=== PATIENT | female | born 1980 | race Caucasian/White ===

== ENCOUNTER 2018-06-17 08:51 | Outpatient (REF) | payer MEDICAID, SELFPAY ==
[2018-06-18 06:48] LABS: Cholesterol 226 mg/dL (50-200); Glucose 94 mg/dL (70-100); HDL Cholesterol 46 mg/dL (40-60); LDL CHOLESTEROL 154 mg/dL (<100); TSH (W/Ref FT4) 1.07 uIU/mL (0.358-3.74); Triglyceride 123 mg/dL (30-150)
== END 2018-06-17 09:11 ==
LOC: NCHCN 08:51
PROVIDERS: PCP Family Medicine; Visit Provider Family Medicine
DX: J30.2 Other seasonal allergic rhinitis (principal); Z00.00 Encounter for general adult medical examination without abnormal findings; Z13.1 Encounter for screening for diabetes mellitus; Z13.220 Encounter for screening for lipoid disorders; Z13.29 Encounter for screening for other suspected endocrine disorder
CPT/HCPCS: 80061; 82947; 83721; 84443

== ENCOUNTER 2018-06-19 20:07 | Emergency (ER) | payer MEDICAID, SELFPAY ==
--- NOTE | 2018-06-19 20:07 | W.ED.GENAD ---
Discharge Plan Disposition Patient Disposition: HOME Condition: Stable Discharge Details Chief Complaint: Cellulitis Clinical Impression: Abscess of axilla, left Primary Care Provider: Shy Courtney V ED Provider: Manjit Whitehead Home Meds and New Rx's Prescriptions: New sulfamethoxazole-trimethoprim [Bactrim DS] 800-160 mg tablet 1 tab PO BID 5 Days Qty: 10 RF: 0 No Action citalopram 20 mg Tablet 30 mg PO DAILY RF: 0 clonazepam 1 mg Tablet 0.5 - 1 mg PO BID RF: 0 meclizine 12.5 mg Tablet 12.5 mg PO PRN PRNRF: 0 Discharge Instructions Instructions: Abscess (ED) Additional Instructions: you should be contacted with an appointment with the general surgery clinic for a recheck of the abscess if you have severe worsening of pain or fevers return to the emergency department Stand Alone Forms: Work Release Medical Decision Making Pt states she has had a lump in the left arm pit for about a week and last night squeezed it and what sounds like purulent material came out. HAs been sore today so came here for an eval. She denies fevers or chills or other systemic symptoms. SHe has a 1x1cm of mild erythema in the left armpit with a hole in the middle, there doesn't appear to be any more fluid or drainable collection in the area at this time. Will start her on abx and have her f/u with general surgery to make sure it doesn't require another drainage. No systemic symptoms to suggest sepsis or severe pain to suggest nec fasc so do not feel labs or imaging indicated at this time Differential Diagnosis abscess, cellulitis HPI General Mode of arrival: ambulatory. Date/Time Provider Initiated Documentation: 06/19/18 20:07. Limitations to Documentation: no limitations. Information obtained by: patient. History of Present Illness 37 year old F presents to the emergency department with the chief complaint of left arm pit abscess, described as moderate, and is localized to the left and upper extremity. Patient reports no radiation. Patient started experiencing this week(s) (1) and it has been constant. No relieving factors improve symptom(s), No exacerbating factors reported . Patient notes no other symptoms.. Related Data Home Medications Medication Instructions Recorded Confirmed citalopram 30 mg PO DAILY 06/19/18 06/19/18 clonazepam 0.5 - 1 mg PO BID 06/19/18 06/19/18 meclizine 12.5 mg PO PRN PRN 06/19/18 06/19/18 sulfamethoxazole-trimethoprim 1 tab PO BID 5 Days #10 tab 06/19/18 [Bactrim DS] Previous Rx's Medication Instructions Recorded sulfamethoxazole-trimethoprim 1 tab PO BID 5 Days #10 tab 06/19/18 [Bactrim DS] Allergies Allergy/AdvReac Type Severity Reaction Status Date / Time No Known Allergies Allergy Unverified 06/19/18 20:16 Review of Systems Review of Systems All systems reviewed & are unremarkable except as noted in HPI and below Constitutional Denies chills and Denies fever(s) Cardiovascular Denies chest pain and Denies dyspnea Respiratory Denies cough and Denies dyspnea Gastrointestinal Denies abdominal pain, Denies nausea and Denies vomiting Endocrine Denies heat intolerance PFSH Social History Smoking/Tobacco Use Status: Current every day Alcohol Intake: never Drug use: Never Substance use type: does not use Do you feel safe at home: Yes Do you feel safe in your relationship?: Yes Exam Const General: no acute distress Orientation: alert HENMT Head: normal to inspection Ears: external ears normal General nose exam: external nose normal Mouth: moist mucous membranes Eyes General: appearance normal, both eyes and all related structures Neck Neck: normal visual inspection Resp Effort & Inspection: normal respiratory effort and able to speak in complete sentences Cardio Rate: regular rate Skin General skin exam: elasticity normal Neuro General: alert and oriented x3 Extrem General: normal to inspection Psych Mental Status: mental status grossly normal
[2018-06-19 20:09] VITALS: BP 120/65; PULSE 94; RESP 14; TEMP 36.7; O2SAT 96
--- NOTE | 2018-06-19 20:26 | ED.GENADUL_ITS ---
Discharge Plan Disposition Patient Disposition: HOME Condition: Stable Discharge Details Chief Complaint: Cellulitis Clinical Impression: Abscess of axilla, left Primary Care Provider: Shy Courtney V ED Provider: Manjit Whitehead Home Meds and New Rx's Prescriptions: New sulfamethoxazole-trimethoprim [Bactrim DS] 800-160 mg tablet 1 tab PO BID 5 Days Qty: 10 RF: 0 No Action citalopram 20 mg Tablet 30 mg PO DAILY RF: 0 clonazepam 1 mg Tablet 0.5 - 1 mg PO BID RF: 0 meclizine 12.5 mg Tablet 12.5 mg PO PRN PRNRF: 0 Discharge Instructions Instructions: Abscess (ED) Additional Instructions: you should be contacted with an appointment with the general surgery clinic for a recheck of the abscess if you have severe worsening of pain or fevers return to the emergency department Stand Alone Forms: Work Release Medical Decision Making Pt states she has had a lump in the left arm pit for about a week and last night squeezed it and what sounds like purulent material came out. HAs been sore today so came here for an eval. She denies fevers or chills or other systemic symptoms. SHe has a 1x1cm of mild erythema in the left armpit with a hole in the middle, there doesn't appear to be any more fluid or drainable collection in the area at this time. Will start her on abx and have her f/u with general surgery to make sure it doesn't require another drainage. No systemic symptoms to sugges t sepsis or severe pain to suggest nec fasc so do not feel labs or imaging indicated at this time Differential Diagnosis abscess, cellulitis HPI General Mode of arrival: ambulatory . Date/Time Provider Initiated Documentation: 06/19/18 20:07 . Limitations to Documentation: no limitations . Information obtained by: patient . History of Present Illness 37 year old F presents to the emergency department with the chief complaint of left arm pit abscess, described as moderate, and is localized to the left and upper extremity. Patient reports no radiation. Patient started experiencing this week(s) (1) and it has been constant. No relieving factors improve symptom(s), No exacerbating factors reported . Patient notes no other symptoms.. Related Data Home Medications Medication Instructions Recorded Confirmed citalopram 30 mg PO DAILY 06/19/18 06/19/18 clonazepam 0.5 - 1 mg PO BID 06/19/18 06/19/18 meclizine 12.5 mg PO PRN PRN 06/19/18 06/19/18 sulfamethoxazole-trimethoprim 1 tab PO BID 5 Days #10 tab 06/19/18 [Bactrim DS] Previous Rx's Medication Instructions Recorded sulfamethoxazole-trimethoprim 1 tab PO BID 5 Days #10 tab 06/19/18 [Bactrim DS] Allergies Allergy/AdvReac Type Severity Reaction Status Date / Time No Known Allergies Allergy Unverified 06/19/18 20:16 Review of Systems Review of Systems All systems reviewed & are unremarkable except as noted in HPI and below Constitutional Denies chills and Denies fever(s) Cardiovascular Denies chest pain and Denies dyspnea Respiratory Denies cough and Denies dyspnea Gastrointestinal Denies abdominal pain, Denies nausea and Denies vomiting Endocrine Denies heat intolerance PFSH Social History Smoking/Tobacco Use Status: Current every day Alcohol Intake: never Drug use: Never Substance use type: does not use Do you feel safe at home: Yes Do you feel safe in your relationship?: Yes Exam Const General: no acute distress Orientation: alert HENMT Head: normal to inspection Ears: external ears normal General nose exam: external nose normal Mouth: moist mucous membranes Eyes General: appearance normal, both eyes and all related structures Neck Neck: normal visual inspection Resp Effort & Inspection: normal respiratory effort and able to speak in complete sentences Cardio Rate: regular rate Skin General skin exam: elasticity normal Neuro General: alert and oriented x3 Extrem General: normal to inspection Psych Mental Status: mental status grossly normal
[2018-06-19] MEDS: Sulfameth/Trimeth DS TAB 1 TAB PO (20:30)
--- NOTE | 2018-06-20 09:00 | CMPROGNOTE_ITS ---
Care Management Progress Note 06/20-Dr. Whitehead requested assistance with a general surgery f/u in one week for left armpit abscess. Referral faxed to [facility] this am.
== END 2018-06-19 20:38 | disposition home or self-care (01) ==
PROVIDERS: Emergency Provider Emergency Medicine; PCP Family Medicine
DX: L02.412 Cutaneous abscess of left axilla (principal)
CPT/HCPCS: 99283

== ENCOUNTER 2018-08-26 11:06 | Emergency (ER) | payer MEDICAID, SELFPAY ==
[2018-08-26 11:11] VITALS: BP 119/71; PULSE 89; RESP 15; TEMP 36.9; O2SAT 100
--- NOTE | 2018-08-26 11:25 | W.ED.GENAD ---
Discharge Plan Disposition Patient Disposition: HOME Condition: Fair Discharge Details Chief Complaint: Nk/Back Pain Clinical Impression: Acute torticollis Primary Care Provider: Shy Courtney V ED Provider: Ronda Almeida Home Meds and New Rx's Prescriptions: New ibuprofen 600 mg tablet 600 mg PO QID PRN (Reason: pain) Qty: 20 RF: 0 diazepam [Valium] 5 mg tablet 5 mg PO TID PRN (Reason: muscle spasm) Qty: 5 RF: 0 Continued citalopram 20 mg Tablet 30 mg PO DAILY RF: 0 clonazepam 1 mg Tablet 0.5 - 1 mg PO BID RF: 0 meclizine 12.5 mg Tablet 12.5 mg PO PRN PRNRF: 0 omega 6-wqy-hsw-fish oil [Fish Oil] 1,000 mg (120 mg-180 mg) Capsule 1 cap PO DAILY RF: 0 Probiotic 3 billion cell Capsule 1 RF: 0 Whey Protein 20 gram-140 kcal/39 gram Powder 1 pwd PO DAILY RF: 0 Discharge Instructions Instructions: Spasmodic Torticollis (ED) Additional Instructions: Encourage hydration. Frequent gentle stretching as discussed. Heat or ice to affected area. Please use Tylenol and ibuprofen to help with discomfort. Valium as prescribed to help with muscle spasm. Please take this only as prescribed, keep in a safe place. Please follow-up with primary care at the end of the week if not completely improved. If you develop change in the skin over area of pain, fever/chills, increased pain, altered sensation or the new/worsening symptoms please seek care urgently once again. Stand Alone Forms: Work Release Referrals: Shy Courtney MD [Primary Care Provider] - Medical Decision Making Patient is a 37-year-old [id number] female presents today with chief complaint of right-sided neck pain. She reports this came on insidiously this morning upon awaking. Not have any neck pain yesterday. Was not exerting herself. No recent trauma. Denies any fevers or chills. Denies any weakness or altered sensation in her extremities. On exam, patient has palpable spasm on the right side of her neck. No cervical midline tenderness, no step-off deformity palpated. She is full range of motion to the left, with extension. Pain is more with flexion and rotation to the right. Patient is referring to hold her head slightly turned away from the right side. Patient did not have any trauma, no infection, no IV drug use, feels slightly torticollis. Encourage gentle range of motion. Stretching exercises were given to the patient and demonstrated for her. Will treat with Tylenol, ibuprofen, Lidoderm patch and Valium for muscle spasm. Patient will prescribe a short course of Valium to help with spasm we discussed the risks associated with this medication. She will not drive will take medication. Her daughter is able to drive her home today. Encourage hydration. Advise close follow-up with primary care. She was given strict return precautions. All other questions and concerns were addressed and she is in agreement this plan. Referral for physical therapy was given. We did discuss expected course. HPI General Mode of arrival: ambulatory. Date/Time Provider Initiated Documentation: 08/26/18 11:25. Limitations to Documentation: no limitations. Information obtained by: patient and RN notes reviewed. History of Present Illness 37 year old F presents to the emergency department with the chief complaint of right sided neck pain and stiffness, described as severe, with intensity rated at 10. Quality is described as stabbing, and is localized to the neck. Patient reports no radiation. Patient started experiencing this hour(s) (woke with this pain) and it has been constant. Immobilization improves symptom(s), Movement worsens symptoms . Patient notes no other symptoms.. Patient did receive the following treatments prior to arrival, none Related Data Home Medications Medication Instructions Recorded Confirmed citalopram 30 mg PO DAILY 06/19/18 08/26/18 clonazepam 0.5 - 1 mg PO BID 06/19/18 08/26/18 meclizine 12.5 mg PO PRN PRN 06/19/18 08/26/18 Probiotic 1 08/26/18 Whey Protein 1 pwd PO DAILY 08/26/18 08/26/18 diazepam [Valium] 5 mg PO TID PRN #5 tab 08/26/18 ibuprofen 600 mg PO QID PRN #20 tab 08/26/18 omega 7-qkv-kfn-fish oil [Fish Oil] 1 cap PO DAILY 08/26/18 08/26/18 Previous Rx's Medication Instructions Recorded diazepam [Valium] 5 mg PO TID PRN #5 tab 08/26/18 ibuprofen 600 mg PO QID PRN #20 tab 08/26/18 Allergies Allergy/AdvReac Type Severity Reaction Status Date / Time No Known Allergies Allergy Unverified 06/19/18 20:16 General Stated Complaint: Nk/Back Pain VICKIE: 4 Review of Systems Constitutional Reports as per HPI, Denies chills, Denies fever(s), Denies headache(s) and Denies weakness ENT Denies headache(s) Cardiovascular Reports as per HPI, Denies chest pain and Denies dyspnea Respiratory Reports as per HPI, Denies cough and Denies dyspnea Genitourinary Denies urinary incontinence Musculoskeletal Reports as per HPI, Denies abnormal gait, Denies deformity, Reports limited range of motion (neck), Reports muscle cramps (muscle spasm right side of neck), Denies muscle weakness, Denies numbness, Denies radiating pain into limb and Denies tingling Integumentary/Breasts Reports as per HPI, Denies rash and Denies wounds Neurologic Reports as per HPI, Denies abnormal gait, Denies headache(s), Denies numbness, Denies tingling, Denies paresthesias and Denies weakness [facility] Social History Smoking/Tobacco Use Status: Current every day Alcohol Intake: never Drug use: Never Substance use type: does not use Do you feel safe at home: Yes Do you feel safe in your relationship?: Yes Exam Const General: cooperative, healthy appearing, comfortable, no acute distress, well developed and well groomed Nutritional Appearance: average body habitus and well nourished Orientation: alert and awake Neck Neck: limited ROM, no lymphadenopathy, no meningeal signs, trachea midline, supple, no anterior neck swelling, no lymphadenopathy noted, no midline deformity and torticollis (right sided palpable spasm, limited ROM to right and with flexion) Resp Effort & Inspection: normal respiratory effort, able to speak in complete sentences and no respiratory distress Auscultation: clear to auscultation bilaterally Cardio Rate: regular rate Rhythm: regular rhythm Heart Sounds: S1 normal Back/Spine/Pelvis Cervical Spine: No cervical ROM normal (unable to rotate to the right, full rotation to left and with extension), loss of normal cervical lordosis, cervical muscular tenderness (right side, palpable spasm), pain with cervical ROM, cervical spasm, No cervical spinal tenderness and No step off deformity Thoracic/Lumbar Spine: thoracic and lumbar spine normal to inspection Skin General skin exam: no rashes or lesions noted Lesions: no lesions Rashes: no rashes Trauma: no lacerations or abrasions Neuro General: alert and awake Cognition: normal cognition Speech: speech normal Gait: normal gait Motor: muscle tone normal throughout Sensory Exam: no sensory deficits noted Extrem General: normal to inspection, full ROM, normal capillary refill and no joint enlargement Psych Appearance: grossly normal and well kempt Mental Status: mental status grossly normal Speech and Movement: speech and movement normal Course Vital Signs Temperature 36.9 C 08/26/18 11:11 Pulse 89 08/26/18 11:11 Respiratory Rate 15 08/26/18 11:11 Blood Pressure 119/71 08/26/18 11:11 Pulse Oximetry 100 08/26/18 11:11 Temperature 36.9 C 08/26/18 11:11 Temperature Source Temporal Artery Scan 08/26/18 11:11 Pulse 89 08/26/18 11:11 Respiratory Rate 15 08/26/18 11:11 Respiratory Effort Non-Labored 08/26/18 11:14 Blood Pressure 119/71 08/26/18 11:11 Blood Pressure Position Supine 08/26/18 11:11 Pulse Oximetry 100 08/26/18 11:11 Oxygen Delivery Method Room Air 08/26/18 11:11 Oxygen Flow Rate 0 08/26/18 11:11 Pain Level 10 08/26/18 11:19
--- NOTE | 2018-08-26 11:50 | ED.GENADUL_ITS ---
Discharge Plan Disposition Patient Disposition: HOME Condition: Fair Discharge Details Chief Complaint: Nk/Back Pain Clinical Impression: Acute torticollis Primary Care Provider: Shy Courtney V ED Provider: Ronda Almeida Home Meds and New Rx's Prescriptions: New ibuprofen 600 mg tablet 600 mg PO QID PRN (Reason: pain) Qty: 20 RF: 0 diazepam [Valium] 5 mg tablet 5 mg PO TID PRN (Reason: muscle spasm) Qty: 5 RF: 0 Continued citalopram 20 mg Tablet 30 mg PO DAILY RF: 0 clonazepam 1 mg Tablet 0.5 - 1 mg PO BID RF: 0 meclizine 12.5 mg Tablet 12.5 mg PO PRN PRNRF: 0 omega 8-mzt-lsx-fish oil [Fish Oil] 1,000 mg (120 mg-180 mg) Capsule 1 cap PO DAILY RF: 0 Probiotic 3 billion cell Capsule 1 RF: 0 Whey Protein 20 gram-140 kcal/39 gram Powder 1 pwd PO DAILY RF: 0 Discharge Instructions Instructions: Spasmodic Torticollis (ED) Additional Instructions: Encourage hydration. Frequent gentle stretching as discussed. Heat or ice to affected area. Please use Tylenol and ibuprofen to help with discomfort. Valium as prescribed to help with muscle spasm. Please take this only as prescribed, keep in a safe place. Please follow-up with primary care at the end of the week if not completely improved. If you develop change in the skin over area of pain, fever/chills, increased pain, altered sensation or the new/worsening symptoms please seek care urgently once again. Stand Alone Forms: Work Release Referrals: Shy Courtney MD [Primary Care Provider] - Medical Decision Making Patient is a 37-year-old [id number] female presents today with chief complaint of right-sided neck pain. She reports this came on insidiously this morning upon awaking. Not have any neck pain yesterday. Was not exerting herself. No recent trauma. Denies any fevers or chills. Denies any weakness or altered sensation in her extremities. On exam, patient has palpable spasm on the right side of her neck. No cervical midline tenderness, no step-off deformity palpated. She is full range of motion to the left, with extension. Pain is more with flexion and rotation to the right. Patient is referring to hold her head slightly turned away from the right side. Patient did not have any trauma, no infection, no IV drug use, feels slightly torticollis. Encourage gentle range of motion. Stretching exercises were given to the patient and demonstrated for her. Will treat with Tylenol, ibuprofen, Lidoderm patch and Valium for muscle spasm. Patient will prescribe a short course of Valium to help with spasm we discussed the risks associated with this medication. She will not drive will take medication. Her daughter is able to drive her home today. Encourage hydration. Advise close follow-up with primary care. She was given strict return precautions. All other questions and concerns were ad dressed and she is in agreement this plan. Referral for physical therapy was given. We did discuss expected course. HPI General Mode of arrival: ambulatory . Date/Time Provider Initiated Documentation: 08/26/18 11:25 . Limitations to Documentation: no limitations . Information obtained by: patient and RN notes reviewed . History of Present Illness 37 year old F presents to the emergency department with the chief complaint of right sided neck pain and stiffness, described as severe, with intensity rated at 10. Quality is described as stabbing, and is localized to the neck. Patient reports no radiation. Patient started experiencing this hour(s) (woke with this pain) and it has been constant. Immobilization improves symptom(s), Movement worsens symptoms . Patient notes no other symptoms.. Patient did receive the following treatments prior to arrival, none Related Data Home Medications Medication Instructions Recorded Confirmed citalopram 30 mg PO DAILY 06/19/18 08/26/18 clonazepam 0.5 - 1 mg PO BID 06/19/18 08/26/18 meclizine 12.5 mg PO PRN PRN 06/19/18 08/26/18 Probiotic 1 08/26/18 Whey Protein 1 pwd PO DAILY 08/26/18 08/26/18 diazepam [Valium] 5 mg PO TID PRN #5 tab 08/26/18 ibuprofen 600 mg PO QID PRN #20 tab 08/26/18 omega 6-rsc-cnb-fish oil [Fish Oil] 1 cap PO DAILY 08/26/18 08/26/18 Previous Rx's Medication Instructions Recorded diazepam [Valium] 5 mg PO TID PRN #5 tab 08/26/18 ibuprofen 600 mg PO QID PRN #20 tab 08/26/18 Allergies Allergy/AdvReac Type Severity Reaction Status Date / Time No Known Allergies Allergy Unverified 06/19/18 20:16 General Stated Complaint: Nk/Back Pain VICKIE: 4 Review of Systems Constitutional Reports as per HPI, Denies chills, Denies fever(s), Denies headache(s) and Denies weakness ENT Denies headache(s) Cardiovascular Reports as per HPI, Denies chest pain and Denies dyspnea Respiratory Reports as per HPI, Denies cough and Denies dyspnea Genitourinary Denies urinary incontinence Musculoskeletal Reports as per HPI, Denies abnormal gait, Denies deformity, Reports limited range of motion (neck), Reports muscle cramps (muscle spasm right side of neck), Denies muscle weakness, Denies numbness, Denies radiating pain into limb and Denies tingling Integumentary/Breasts Reports as per HPI, Denies rash and Denies wounds Neurologic Reports as per HPI, Denies abnormal gait, Denies headache(s), Denies numbness, Denies tingling, Denies paresthesias and Denies weakness [facility] Social History Smoking/Tobacco Use Status: Current every day Alcohol Intake: never Drug use: Never Substance use type: does not use Do you feel safe at home: Yes Do you feel safe in your relationship?: Yes Exam Const General: cooperative, healthy appearing, comfortable, no acute distress, well developed and well groomed Nutritional Appearance: average body habitus and well nourished Orientation: alert and awake Neck Neck: limited ROM, no lymphadenopathy, no meningeal signs, trachea midline, supple, no anterior neck swelling, no lymphadenopathy noted, no midline deformity and torticollis (right sided palpable spasm, limited ROM to right and with flexion) Resp Effort & Inspection: normal respiratory effort, able to speak in complete sent ences and no respiratory distress Auscultation: clear to auscultation bilaterally Cardio Rate: regular rate Rhythm: regular rhythm Heart Sounds: S1 normal Back/Spine/Pelvis Cervical Spine: No cervical ROM normal (unable to rotate to the right, full rotation to left and with extension), loss of normal cervical lordosis, cervical muscular tenderness (right side, palpable spasm), pain with cervical ROM, ce rvical spasm, No cervical spinal tenderness and No step off deformity Thoracic/Lumbar Spine: thoracic and lumbar spine normal to inspection Skin General skin exam: no rashes or lesions noted Lesions: no lesions Rashes: no rashes Trauma: no lacerations or abrasions Neuro General: alert and awake Cognition: normal cognition Speech: speech normal Gait: normal gait Motor: muscle tone normal throughout Sensory Exam: no sensory deficits noted Extrem General: normal to inspection, full ROM, normal capillary refill and no joint enlargement Psych Appearance: grossly normal and well kempt Mental Status: mental status grossly normal Speech and Movement: speech and movement normal Course Vital Signs Temperature 36.9 C 08/26/18 11:11 Pulse 89 08/26/18 11:11 Respiratory Rate 15 08/26/18 11:11 Blood Pressure 119/71 08/26/18 11:11 Pulse Oximetry 100 08/26/18 11:11 Temperature 36.9 C 08/26/18 11:11 Temperature Source Temporal Artery Scan 08/26/18 11:11 Pulse 89 08/26/18 11:11 Respiratory Rate 15 08/26/18 11:11 Respiratory Effort Non-Labored 08/26/18 11:14 Blood Pressure 119/71 08/26/18 11:11 Blood Pressure Position Supine 08/26/18 11:11 Pulse Oximetry 100 08/26/18 11:11 Oxygen Delivery Method Room Air 08/26/18 11:11 Oxygen Flow Rate 0 08/26/18 11:11 Pain Level 10 08/26/18 11:19
[2018-08-26] MEDS: diazePAM 5 MG TAB PO (11:57)
[2018-08-26] MEDS: Acetaminophen 325 MG TAB 650 MG PO (11:58)
[2018-08-26] MEDS: Ibuprofen 600 MG TAB PO (11:58)
[2018-08-26 11:59] VITALS: BP 104/71; PULSE 78; RESP 16
[2018-08-26] MEDS: Lidocaine 5% Patch 1 PATCH TP (12:07)
== END 2018-08-26 12:10 | disposition home or self-care (01) ==
PROVIDERS: Emergency Provider Physician Assistant; PCP Family Medicine
DX: M43.6 Torticollis (principal)
CPT/HCPCS: 99283

== ENCOUNTER 2019-03-30 13:51 | Emergency (ER) | payer MEDICAID, SELFPAY ==
[2019-03-30 13:55] VITALS: BP 117/70; PULSE 99; RESP 16; TEMP 36.2; O2SAT 99
--- NOTE | 2019-03-30 14:43 | ED.GENADUL_ITS ---
Discharge Plan Disposition Patient Disposition: HOME Condition: Improving Discharge Details Chief Complaint: Cellulitis Clinical Impression: Abscess of Bartholin's gland Primary Care Provider: Shy Courtney V ED Provider: Travis Trotter Home Meds and New Rx's Prescriptions: Continued citalopram 20 mg Tablet 30 mg PO DAILY RF: 0 clonazepam 1 mg Tablet 0.5 - 1 mg PO BID RF: 0 meclizine 12.5 mg Tablet 12.5 mg PO PRN PRNRF: 0 omega 6-ksf-xpq-fish oil [Fish Oil] 1,000 mg (120 mg-180 mg) Capsule 1 cap PO DAILY RF: 0 ibuprofen 600 mg tablet 600 mg PO QID PRN (Reason: pain) Qty: 20 RF: 0 Discharge Instructions Instructions: Bartholin Cyst (ED), Incision and Drainage (ED) Additional Instructions: 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 I discussed your case with Dr. Swann, who asked that she come to clinic tomorrow morning at 9 AM. Please tell the clinic staff that he instructed you to present at 9 AM and that he and I have discussed your case. Phone #[phone] May use Tylenol and/or ibuprofen if needed for discomfort. Return to the emerge department for any acute concerns in the interim. Stand Alone Forms: Work Release Medical Decision Making Healthy 38-year-old female presents with 4 days of right labial swelling. Consistent with Bartholin glands abscess on exam. She is not systemically ill and her history and exam are otherwise unremarkable. Consented for incision, drainage, placement of Word catheter. Patient was anesthetized, prepped and draped in standard sterile fashion incised on just the medial border of the inferior labia with production of approximately 2 cc of purulent fluid. A Word balloon tipped catheter did not seat adequately and the patient was subsequently packed with iodoform gauze. I discussed the case with Dr. Swann who will see the patient in follow-up tomorrow in the office. She is instructed on home care in the interim. HPI General Mode of arrival: ambulatory . Date/Time Provider Initiated Documentation: 03/30/19 13:56 . Limitations to Documentation: no limitations . Information obtained by: patient . History of Present Illness 38 year old F presents to the emergency department with the chief complaint of Right labial swelling and pain, described as mild, Quality is described as dull and constant, and is localized to the genitals and right. Patient reports no radiation. Patient started experiencing this day(s) and it has been constant. No relieving factors improve symptom(s), No exacerbating factors reported . Patient notes no other symptoms.. Patient did receive the following treatments prior to arrival, none Related Data Home Medications Medication Instructions Recorded Confirmed citalopram 30 mg PO DAILY 06/19/18 03/30/19 clonazepam 0.5 - 1 mg PO BID 06/19/18 03/30/19 meclizine 12.5 mg PO PRN PRN 06/19/18 03/30/19 ibuprofen 600 mg PO QID PRN #20 tab 08/26/18 03/30/19 omega 3-vax-ern-fish oil [Fish Oil] 1 cap PO DAILY 08/26/18 03/30/19 Previous Rx's Medication Instructions Recorded ibuprofen 600 mg PO QID PRN #20 tab 08/26/18 Allergies Allergy/AdvReac Type Severity Reaction Status Date / Time No Known Allergies Allergy Unverified 03/30/19 13:57 General Stated Complaint: Cellulitis VICKIE: 4 Review of Systems Narrative: 6 systems reviewed and otherwise negative [facility] Social History Smoking/Tobacco Use Status: Current every day Tobacco Type: cigarettes Alcohol Intake: current Alcohol Intake frequency: holidays/special occasions only Drug use: Never Substance use type: does not use Do you feel safe at home: Yes Do you feel safe in your relationship?: Yes Exam Narrative Exam Narrative: GEN: awake, alert, oriented 3. Pleasant, well groomed, interactive. HEAD: Normocephalic, atraumatic ENT: Mucous membranes moist, oropharynx unremarkable, External ear exam unremarkable EYES: PERRL, EOMI NECK: Full ROM, no HILDA, no menigismus CHEST/RESP: Nontender, clear to auscultation bilateral, no wheeze/rhonchi/rales CARDIOVASCULAR: RRR, no murmur, rub jhony. 2+ Rad pulse bilateral ABDOMEN: Soft, nontender, no mass. +Bowel sounds. Pelvis exam: R labia inferior swelling, tenderness EXT: Full ROM, no edema, no rash Neuro: Grossly normal neurologic exam, conversant, interactive. Psych: Speech fluent, thoughts congruent, affect normal Course Vital Signs Vital signs: Vital Signs Temperature 36.2 C L 03/30/19 13:55 Pulse 99 H 03/30/19 13:55 Respiratory Rate 16 03/30/19 13:55 Blood Pressure 117/70 03/30/19 13:55 Pulse Oximetry 99 03/30/19 13:55 Temperature 36.2 C L 03/30/19 13:55 Temperature Source Skin 03/30/19 13:55 Pulse 99 H 03/30/19 13:55 Respiratory Rate 16 03/30/19 13:55 Respiratory Effort Non-Labored 03/30/19 13:58 Blood Pressure 117/70 03/30/19 13:55 Blood Pressure Position Sitting 03/30/19 13:55 Pulse Oximetry 99 03/30/19 13:55 Oxygen Delivery Method Room Air 03/30/19 13:55 Oxygen Flow Rate 0 03/30/19 13:55 Pain Level 5 03/30/19 13:55 Procedures Abscess I/D Site: Bartholin's Gland Side (if applicable): Right Local Anesthetic: Lidocaine 1% Amount of anesthesia used (mL): 2 Technique: Incised with #11 Blade Packing used?: Iodoform
[2019-03-30 16:10] VITALS: BP 124/74; PULSE 81; RESP 18; TEMP 36.8; O2SAT 98
== END 2019-03-30 16:13 | disposition home or self-care (01) ==
PROVIDERS: Emergency Provider Emergency Medicine; PCP Family Medicine
DX: N75.1 Abscess of Bartholin's gland (principal)
CPT/HCPCS: 56420; 99283

== ENCOUNTER 2019-04-21 06:28 | Outpatient (CLI) | payer MEDICAID, SELFPAY ==
--- NOTE | 2019-04-21 10:14 | DI.RAD_ITS ---
EXAM: XR THORACIC SPINE COMPLETE CLINICAL HISTORY: THORACIC BACK PAIN M54.9. TECHNIQUE: 2D digital imaging was performed. COMPARISON: No exams were available for comparison FINDINGS: BONES: There is no fracture or destructive lesion. The vertebral bodies and posterior elements are un remarkable. DISKS:Alignment is within normal limits. Interverebral disc spaces are maintained. SOFT TISSUE: Visualized lungs are clear. IMPRESSION: Unremarkable radiographs of the thoracic spine.
--- NOTE | 2019-04-21 10:18 | DI.RAD_ITS ---
EXAM: XR LUMBAR SPINE COMPLETE INDICATION: LOW BACK PAIN M54.5. COMPARISON: No exams were available for comparison TECHNIQUE: 2D digital imaging was performed. FINDINGS: There are 5 lumbar-type vertebral bodies. No spondylolysis or spondylolisthesis is present. There a re no acute fractures or subluxations. There are degenerative changes of the facets at L4-5 and L5-S 1. The disc spaces are well maintained. The bones are normally mineralized. The soft tissues are u nremarkable. IMPRESSION: Mild degenerative changes in the lower lumbar spine.
== END 2019-04-21 06:48 ==
PROVIDERS: PCP Family Medicine; Visit Provider Family Medicine
DX: M54.6 Pain in thoracic spine (principal); M54.5 Low back pain; M47.817 Spondylosis without myelopathy or radiculopathy, lumbosacral region
CPT/HCPCS: 72072; 72110

== ENCOUNTER 2019-04-26 10:27 | Emergency (ER) | payer MEDICAID, SELFPAY ==
[2019-04-26 10:32] VITALS: BP 132/79; PULSE 112; RESP 16; TEMP 36.2; O2SAT 97
--- NOTE | 2019-04-26 11:17 | W.ED.GENAD ---
Discharge Plan Disposition Patient Disposition: HOME Condition: Stable Discharge Details Chief Complaint: DentalOral Clinical Impression: Dental infection Primary Care Provider: Shy Courtney V ED Provider: Randi Anderson Home Meds and New Rx's Prescriptions: New penicillin V potassium 500 mg tablet 500 mg PO QID 7 Days Qty: 28 RF: 0 Continued cholecalciferol (vitamin D3) 4,000 unit capsule 4,000 unit PO DAILY RF: 0 sulfamethoxazole-trimethoprim [Bactrim DS] 800-160 mg tablet 1 tab PO BID Qty: 14 RF: 0 citalopram 20 mg Tablet 30 mg PO DAILY RF: 0 clonazepam 1 mg Tablet 0.5 - 1 mg PO BID RF: 0 meclizine 12.5 mg Tablet 12.5 mg PO PRN PRNRF: 0 omega 7-ymz-rxx-fish oil [Fish Oil] 1,000 mg (120 mg-180 mg) Capsule 1 cap PO DAILY RF: 0 ibuprofen 600 mg tablet 600 mg PO QID PRN (Reason: pain) Qty: 20 RF: 0 mirtazapine 15 mg Tablet 15 mg PO .QHS RF: 0 Discharge Instructions Instructions: Dental Caries (ED) Additional Instructions: Drink plenty of fluids and get plenty of rest. Alternate tylenol and motrin as needed and directed for pain. Take the antibiotics until finished. Call [facility] tomorrow morning to schedule a follow-up appointment for reevaluation. Return to the emergency department if you develop any worsening or new concerning symptoms. Discharge Data Discharge Date/Time-TO BE ENTERED AT DEPARTURE: 04/26/19 11:51 Discharge Physician: Randi Anderson Medical Decision Making 38-year-old female presents with left upper dental pain for the past 2 days. Poor dentition throughout. Multiple dental caries and missing and broken teeth. Area of pain left upper jaw. There is surrounding mild edema and erythema but no abscess noted. No trismus, drooling or submandibular swelling. Patient states she plans to follow-up with [facility]. She was given a prescription for penicillin. She is advised to call [facility] tomorrow for follow-up and to return here with any concerns. Medical Records Medical records reviewed: Yes I reviewed the patient's medical records. HPI General Mode of arrival: ambulatory. Date/Time Provider Initiated Documentation: 02/09/20 10:34. Limitations to Documentation: no limitations. Information obtained by: patient. History of Present Illness 38 year old F presents to the emergency department with the chief complaint of Left upper dental pain, and is localized to the face and mouth. Patient started experiencing this day(s) (2) and it has been constant. No relieving factors improve symptom(s), Movement worsens symptoms . Patient notes no other symptoms.. Patient did receive the following treatments prior to arrival, none Related Data Home Medications Medication Instructions Recorded Confirmed citalopram 30 mg PO DAILY 06/19/18 04/26/19 clonazepam 0.5 - 1 mg PO BID 06/19/18 04/26/19 meclizine 12.5 mg PO PRN PRN 06/19/18 04/26/19 ibuprofen 600 mg PO QID PRN #20 tab 08/26/18 04/26/19 omega 5-ukc-nsd-fish oil [Fish Oil] 1 cap PO DAILY 08/26/18 04/26/19 cholecalciferol (vitamin D3) 4,000 4,000 unit PO DAILY 03/31/19 04/26/19 unit capsule sulfamethoxazole 800 1 tab PO BID #14 tab 03/31/19 04/26/19 mg-trimethoprim 160 mg tablet mirtazapine 15 mg PO .QHS 04/26/19 04/26/19 penicillin V potassium 500 mg PO QID 7 Days #28 tab 04/26/19 Previous Rx's Medication Instructions Recorded ibuprofen 600 mg PO QID PRN #20 tab 08/26/18 sulfamethoxazole 800 1 tab PO BID #14 tab 03/31/19 mg-trimethoprim 160 mg tablet penicillin V potassium 500 mg PO QID 7 Days #28 tab 04/26/19 Allergies Allergy/AdvReac Type Severity Reaction Status Date / Time No Known Allergies Allergy Unverified 04/26/19 10:35 General Stated Complaint: DentalOral VICKIE: 4 Review of Systems All systems reviewed & are unremarkable except as noted in HPI and below Constitutional Constitutional: Reports as per HPI, Denies chills and Denies fever(s) Eyes Eyes: Denies blurry vision ENT Ears, Nose, Mouth, and Throat: Denies dizziness, Denies sore throat and Denies throat swelling Cardiovascular Cardiovascular: Denies chest pain and Denies dyspnea Respiratory Respiratory: Denies cough and Denies dyspnea Gastrointestinal Gastrointestinal: Denies abdominal pain, Denies diarrhea and Denies vomiting Genitourinary Genitourinary: Denies hematuria and Denies dysuria Musculoskeletal Musculoskeletal: Denies back pain and Denies numbness Integumentary/Breasts Skin/Breast: Denies lesions and Denies rash Neurologic Neurologic: Denies dizziness, Denies focal weakness and Denies numbness Allergic/Immunologic Allergic/Immunologic: Denies throat swelling [facility] Social History Smoking/Tobacco Use Status: Current every day Tobacco Type: cigarettes Smoking packs per day: 0.5 Smoking cigarettes per day: 10.0 Alcohol Intake: current Alcohol Intake frequency: holidays/special occasions only Drug use: Never Substance use type: does not use Do you feel safe at home: Yes Do you feel safe in your relationship?: Yes Exam Const General: cooperative, healthy appearing and no acute distress HENMT Head: normal to inspection Ears: hearing grossly normal bilaterally, external ears normal and TM's normal bilaterally General nose exam: external nose normal Mouth: oral mucosae normal Teeth image: 1. Tenderness to palpation. Poor dentition throughout. Multiple missing teeth. Braces of teeth remaining with dental caries. There is mild to moderate edema and erythema around base of tooth. There is no abscess noted. Throat: posterior oropharynx normal Eyes General: appearance normal, both eyes and all related structures Neck Neck: normal visual inspection, trachea midline, supple, no anterior neck swelling and No submandibular swelling Resp Effort & Inspection: normal respiratory effort and able to speak in complete sentences Auscultation: clear to auscultation bilaterally Cardio Rate: regular rate Skin General skin exam: no rashes or lesions noted Neuro General: alert, awake and oriented x3 Motor: muscle tone normal throughout Extrem General: normal to inspection and full ROM Psych Appearance: grossly normal Affect: normal affect Course Vital Signs Vital signs: Vital Signs Temperature 97.2 F L 04/26/19 10:32 Pulse 112 H 04/26/19 10:32 Respiratory Rate 16 04/26/19 10:32 Blood Pressure 132/79 04/26/19 10:32 Pulse Oximetry 97 04/26/19 10:32 Temperature 97.2 F L 04/26/19 10:32 Temperature Source Skin 04/26/19 10:32 Pulse 112 H 04/26/19 10:32 Respiratory Rate 16 04/26/19 10:32 Respiratory Effort Non-Labored 04/26/19 10:32 Blood Pressure 132/79 04/26/19 10:32 Blood Pressure Position Sitting 04/26/19 10:32 Pulse Oximetry 97 04/26/19 10:32 Oxygen Delivery Method Room Air 04/26/19 10:32 Oxygen Flow Rate 0 04/26/19 10:32 Pain Level 8 04/26/19 10:55
[2019-04-26 11:44] VITALS: BP 111/51; PULSE 87; RESP 16; TEMP 36.8; O2SAT 98
== END 2019-04-26 11:51 | disposition home or self-care (01) ==
PROVIDERS: Emergency Provider Physician Assistant; PCP Family Medicine
DX: R68.84 Jaw pain (principal); K04.7 Periapical abscess without sinus
CPT/HCPCS: 99283

== ENCOUNTER 2020-04-16 09:34 | Emergency (ER) | payer MEDICAID, SELFPAY ==
[2020-04-16 09:38] VITALS: BP 133/80; PULSE 107; RESP 20; TEMP 36.2; O2SAT 96
--- NOTE | 2020-04-16 09:49 | ED.GENADUL_ITS ---
Discharge Plan Disposition Patient Disposition: HOME Condition: Improving Discharge Details Clinical Impression: Dental infection Primary Care Provider: Shy Courtney V ED Provider: Travis Trotter Home Meds and New Rx's Prescriptions: New amoxicillin-pot clavulanate 875-125 mg tablet 1 tab PO BID 10 Days Qty: 20 RF: 0 Continued cholecalciferol (vitamin D3) 4,000 unit capsule 4,000 unit PO DAILY RF: 0 citalopram 20 mg Tablet 30 mg PO DAILY RF: 0 clonazepam 1 mg Tablet 0.5 - 1 mg PO BID RF: 0 meclizine 12.5 mg Tablet 12.5 mg PO PRN PRNRF: 0 omega 4-clm-wdz-fish oil [Fish Oil] 1,000 mg (120 mg-180 mg) Capsule 1 cap PO DAILY RF: 0 ibuprofen 600 mg tablet 600 mg PO QID PRN (Reason: pain) Qty: 20 RF: 0 Discontinued clindamycin HCl 300 mg capsule 300 mg PO QID RF: 0 Discharge Instructions Instructions: Dental Abscess (ED) Additional Instructions: Stop clindamycin. Begin Augmentin as prescribed. Take for its entire course. I recommend you begin an ssbb-ysv-zimnxpq probiotic once daily in the middle of the day. Return for fever, increased swelling, drooling or change to voice, or any other acute concerns. Please follow-up with dentistry as you have planned. Warm compress to area. Salt water gargles. May continue Tylenol and/or ibuprof en as needed for pain. Medical Decision Making 39-year-old female with previous dental infection reports 4 to 5 days of left lower jaw discomfort, swelling, bilateral ear congestion. She was placed on clindamycin 4 days ago. Ongoing symptoms today. She has follow-up planned with dentistry. She is well-appearing and afebrile. She has left mandibular buccal swelling with no pointing abscess. We will have her start on Augmentin. Begin a probiotic. She is to stop the clindamycin. She will follow-up with dentistry as planned. Appropriate for home management at this time. HPI General Mode of arrival: ambulatory . Date/Time Provider Initiated Documentation: 04/16/20 09:35 . Limitations to Documentation: no limitations . Information obtained by: patient . History of Present Illness 39 year old F presents to the emergency department with the chief complaint of Left lower jaw pain, described as moderate and similar to prior episodes, Quality is described as dull and constant, and is localized to the face, mouth and left. Patient reports no radiation. Patient started experiencing this day(s) and it has been constant. No relieving factors improve symptom(s), No exacerbating factors reported . Patient notes denies fever/chills and nausea/vomiting. Patient did receive the following treatments prior to arrival, NSAID and other (Clindamycin) Related Data Home Medications Medication Instructions Recorded Confirmed citalopram 30 mg PO DAILY 06/19/18 04/16/20 clonazepam 0.5 - 1 mg PO BID 06/19/18 04/16/20 meclizine 12.5 mg PO PRN PRN 06/19/18 04/16/20 ibuprofen 600 mg PO QID PRN #20 tab 08/26/18 04/16/20 omega 8-gxp-zaf-fish oil [Fish Oil] 1 cap PO DAILY 08/26/18 04/16/20 cholecalciferol (vitamin D3) 100 4,000 unit PO DAILY 03/31/19 04/16/20 mcg (4,000 unit) capsule amoxicillin-pot clavulanate 1 tab PO BID 10 Days #20 tab 04/16/20 Previous Rx's Medication Instructions Recorded ibuprofen 600 mg PO QID PRN #20 tab 08/26/18 amoxicillin-pot clavulanate 1 tab PO BID 10 Days #20 tab 04/16/20 Allergies Allergy/AdvReac Type Severity Reaction Status Date / Time No Known Allergies Allergy Unverified 04/16/20 09:42 General Stated Complaint: DentalOral VICKIE: 4 Review of Systems Narrative: No fever, no stiff neck, no vomiting, no drooling, no change to voice or swallowing. 6 systems reviewed and otherwise negative [facility] Social History Smoking/Tobacco Use Status: Current every day Tobacco Type: cigarettes Smoking packs per day: 0.5 Smoking cigarettes per day: 10.0 Smoking risk assessment performed?: Yes Alcohol Intake: current Alcohol Intake frequency: holidays/special occasions only Drug use: Never Substance use type: does not use Do you feel safe at home: Yes Do you feel safe in your relationship?: Yes Exam Narrative Exam Narrative: GEN: awake, alert, oriented 3. Pleasant, well groomed, inter active. HEAD: Normocephalic, atraumatic ENT: Mucous membranes moist, oropharynx with numerous dental caries, missing teeth, partial dental fractures. Tender left lower with mild buccal swelling present along the lateral aspect. No pointing or focal abscess. Tympanic membrane is congested but pearlescent bilaterally external ear exam unremarkable EYES: PERRL, EOMI NECK: Full ROM, no HILDA, no menigismus CHEST/RESP: No respiratory distress EXT: Full ROM, no edema, no rash Neuro: Grossly normal neurologic exam, conversant, interactive. Psych: Speech fluent, thoughts congruent, affect normal Course Vital Signs Vital signs: Vital Signs Temperature 36.2 C L 04/16/20 09:38 Pulse 107 H 04/16/20 09:38 Respiratory Rate 20 04/16/20 09:38 Blood Pressure 133/80 04/16/20 09:38 Pulse Oximetry 96 04/16/20 09:38 Temperature 36.2 C L 04/16/20 09:38 Temperature Source Skin 04/16/20 09:38 Pulse 107 H 04/16/20 09:38 Respiratory Rate 20 04/16/20 09:38 Respiratory Effort Non-Labored 04/16/20 09:44 Blood Pressure 133/80 04/16/20 09:38 Blood Pressure Position Sitting 04/16/20 09:38 Pulse Oximetry 96 04/16/20 09:38 Oxygen Delivery Method Room Air 04/16/20 09:38 Oxygen Flow Rate 0 04/16/20 09:38 Pain Level 5 04/16/20 09:38
[2020-04-16] MEDS: Amoxicillin 875/Clav. 125 TAB PO (09:59)
== END 2020-04-16 10:02 | disposition home or self-care (01) ==
PROVIDERS: Emergency Provider Emergency Medicine; PCP Family Medicine
DX: R68.84 Jaw pain (principal); K04.7 Periapical abscess without sinus; R22.0 Localized swelling, mass and lump, head
CPT/HCPCS: 99283

== ENCOUNTER 2020-05-20 07:00 | Emergency (ER) | payer MEDICAID, SELFPAY ==
[2020-05-20 07:07] VITALS: BP 128/74; PULSE 104; RESP 18; TEMP 35.9; O2SAT 97
--- NOTE | 2020-05-20 07:13 | W.ED.GENAD ---
Discharge Plan Disposition Patient Disposition: HOME Condition: Good Discharge Details Clinical Impression: Acute streptococcal pharyngitis Primary Care Provider: Shy Courtney V ED Provider: Jarred [place] Meds and New Rx's Prescriptions: New penicillin V potassium 500 mg tablet 500 mg PO BID Qty: 19 RF: 0 Continued cholecalciferol (vitamin D3) 4,000 unit capsule 4,000 unit PO DAILY RF: 0 citalopram 20 mg Tablet 30 mg PO DAILY RF: 0 clonazepam 1 mg Tablet 0.5 - 1 mg PO DAILY RF: 0 meclizine 12.5 mg Tablet 12.5 mg PO PRN PRNRF: 0 omega 7-bqw-rad-fish oil [Fish Oil] 1,000 mg (120 mg-180 mg) Capsule 1 cap PO DAILY RF: 0 loratadine 10 mg tablet 10 mg PO DAILY RF: 0 ibuprofen 600 mg tablet 800 mg PO QID PRN (Reason: pain) RF: 0 Discharge Instructions Instructions: Strep Throat (ED), COVID-19: Slow the Coronavirus Spread (ED) Additional Instructions: You have exposure, lack of immunization and symptoms which could be early Covid. You have been tested and need to stay home in quarantine until those results are back negative and you are feeling better. You are strep positive. We will treat with penicillin. This does not mean you cannot have COVID as well. Rest, hydrate, use Tylenol or Motrin as needed. Return to ED for mental status changes, shortness of breath, chest pain, [id number] to swallow, other concerns. Stand Alone Forms: PENDING COVID-19 TESTING, Work Release Referrals: Shy Courtney MD [Primary Care Provider] - Medical Decision Making Patient presenting with complaints of headache, sore throat, chills, slight cough. 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 She is not immunized. She does not look ill but she certainly could have contracted Covid. She is afebrile here. Saturations are normal. Exam is unremarkable. We will plan rapid strep and send out Covid with instructions to quarantine at home until negative testing and feeling better. Recommend rest, hydration, acetaminophen or ibuprofen for discomfort. Return to ED for altered mental status, chest pain, shortness of breath, other concerns. HPI General Mode of arrival: ambulatory. Date/Time Provider Initiated Documentation: 05/20/20 07:12. Limitations to Documentation: no limitations. Information obtained by: patient and RN notes reviewed. HPI Narrative: Patient presents to ED with complaint of headache, sore throat, chills since yesterday. She has a slight cough. She has no fever, shortness of breath, chest pain, GI symptoms, loss of taste or smell. 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 She reports that there have been 2 recent positive Covid cases. She has not yet been immunized. She is supposed to work today. Related Data Home Medications Medication Instructions Recorded Confirmed citalopram 30 mg PO DAILY 06/19/18 05/20/20 clonazepam 0.5 - 1 mg PO DAILY 06/19/18 05/20/20 meclizine 12.5 mg PO PRN PRN 06/19/18 05/20/20 omega 5-kph-rnt-fish oil [Fish Oil] 1 cap PO DAILY 08/26/18 05/20/20 cholecalciferol (vitamin D3) 100 4,000 unit PO DAILY 03/31/19 05/20/20 mcg (4,000 unit) capsule ibuprofen 800 mg PO QID PRN 05/20/20 05/20/20 loratadine 10 mg PO DAILY 05/20/20 05/20/20 penicillin V potassium 500 mg PO BID #19 tab 05/20/20 Previous Rx's Medication Instructions Recorded penicillin V potassium 500 mg PO BID #19 tab 05/20/20 Allergies Allergy/AdvReac Type Severity Reaction Status Date / Time No Known Allergies Allergy Unverified 04/16/20 09:42 General Stated Complaint: Sorethroat VICKIE: 3 Review of Systems Narrative: As documented in HPI otherwise negative as below. Const: no fever, weakness Resp: no SOB, pleuritic pain CV: no CP, diaphoresis, edema, syncope GI: no abdominal pain, nausea, vomiting, diarrhea Neuro: no numbness, focal weakness, confusion [facility] Medical History No significant past medical history Surgical History S/P tubal ligation Social History Smoking/Tobacco Use Status: Former Tobacco Use Smoking risk assessment performed?: Yes Alcohol Intake: current Alcohol Intake frequency: holidays/special occasions only Drug use: Never Substance use type: does not use Do you feel safe at home: Yes Do you feel safe in your relationship?: Yes Exam Narrative Exam Narrative: Const: WDWN female in NAD. HEENT: NC/AT. Normal facial exam. Normal TMs. Normal oropharynx. Eyes: Normal conjunctiva and sclera. Neck: Supple. Trachea midline. Lungs: Normal respiratory effort. Lungs are clear. Cor: RRR without murmur/gallop. Good radial pulses. Neuro: A+O x 3. Normal speech, mentation, gait. Cranial nerves II - XII grossly intact. No gross motor or sensory deficit. Skin: Warm and dry without rash. Course Vital Signs Vital signs: Vital Signs Temperature 96.6 F L 05/20/20 07:07 Pulse 104 H 05/20/20 07:07 Respiratory Rate 18 05/20/20 07:07 Blood Pressure 128/74 05/20/20 07:07 Pulse Oximetry 97 05/20/20 07:07 Temperature 96.6 F L 05/20/20 07:07 Temperature Source Temporal Artery Scan 05/20/20 07:07 Pulse 104 H 05/20/20 07:07 Respiratory Rate 18 05/20/20 07:07 Blood Pressure 128/74 05/20/20 07:07 Blood Pressure Position Sitting 05/20/20 07:07 Pulse Oximetry 97 05/20/20 07:07 Oxygen Delivery Method Room Air 05/20/20 07:07 Oxygen Flow Rate 0 05/20/20 07:07 Pain Level 3 05/20/20 07:07
[2020-05-20] MEDS: Penicillin V POTASSIUM 500 MG TAB PO (07:56)
[2020-05-21 14:06] LABS: COVID-19 RT-PCR UVMMC Result Negative (Negative)
--- NOTE | 2020-05-23 10:07 | NUR.NOTE ---
Nursing Note: Attempted to call patient on cell phone # on file to notify of negative covid results. Receive message that this cell phone number has phone restrictions in place that prevents calls from our number. Next of kin on file with same phone # as patient. Negative covid results mailed to patient to address on file.
== END 2020-05-20 08:03 | disposition home or self-care (01) ==
PROVIDERS: Emergency Provider Emergency Medicine; PCP Family Medicine
DX: J02.0 Streptococcal pharyngitis (principal); Z03.818 Encounter for observation for suspected exposure to other biological agents ruled out
CPT/HCPCS: 87880; 99283; U0003

== ENCOUNTER 2020-10-30 19:45 | Emergency (ER) | payer MEDICAID, SELFPAY ==
[2020-10-30 19:54] VITALS: BP 124/70; PULSE 86; RESP 18; TEMP 36.7; O2SAT 95
--- NOTE | 2020-10-30 19:58 | ED.GENADUL_ITS ---
Discharge Plan Disposition Patient Disposition: HOME Condition: Good Discharge Details Clinical Impression: Allergic conjunctivitis, Acute bacterial conjunctivitis of right eye Primary Care Provider: Shy Courtney V ED Provider: Shyam Alvarado Home Meds and New Rx's Prescriptions: Continued cholecalciferol (vitamin D3) 4,000 unit capsule 4,000 unit PO DAILY RF: 0 citalopram 20 mg Tablet 30 mg PO DAILY RF: 0 clonazepam 1 mg Tablet 0.5 - 1 mg PO DAILY RF: 0 meclizine 12.5 mg Tablet 12.5 mg PO PRN PRNRF: 0 omega 5-sgq-bgo-fish oil [Fish Oil] 1,000 mg (120 mg-180 mg) Capsule 1 cap PO DAILY RF: 0 loratadine 10 mg tablet 10 mg PO DAILY RF: 0 ibuprofen 600 mg tablet 800 mg PO QID PRN (Reason: pain) RF: 0 Discharge Instructions Instructions: Conjunctivitis (ED) Additional Instructions: At this time I feel that your congestion is likely from allergies, please take Claritin 10 mg [id number] every day for the next few days as your symptoms improve. In regards to the crusting on your eyes this is likely from a bacterial infection. Please apply 2 drops of the Cipro that we provided you here into each eye every 4-6 hours for the next 7 days. If you notice any worsening of your symptoms, or any new symptoms such as vomiting, diarrhea, fever, chills, shortness of breath, chest pain, numbness, weakness, or fainting , please return immediately to the emergency department for reevaluation. Please follow up with your primary care provider as soon as possible for reassessment and reevaluation. As always, it was a pleasure participating in your medical care today. Stand Alone Forms: Work Release Referrals: Shy Courtney MD [Primary Care Provider] - Medical Decision Making 39-year-old female with no significant past medical history aside for occasional allergies presents today for evaluation of crusting in the right eye and mild nasal congestion. She states that the symptoms have been present for the last few days. She has been using an antihistamine drop in her eyes but this does not improve them at all. She denies any nausea vomiting headache neck pain fever, chills, chest pain or shortness of breath. She denies any trauma. She denies any vision changes or eye pain. No other complaints this time. Exam is relatively unremarkable. No significant sinus pressure, minimal crusting. Minimal conjunctival injection. No evidence of severely purulent infection. Ears unremarkable aside for small amount of clear fluid. No evidence of otitis media, but rather just a small amount of serous fluid likely from allergies and congestion. Will recommend 10 mg of loratadine daily, will give Cipro drops here for her eyes bilaterally. Discussed red flags which to return. She does not wear contact lenses. I have extensively reviewed the treatment plan and discharge instructions with the patient. I have addressed all patient concerns at this time. The patient was made aware of what symptoms to monitor for that would warrant a return to the emergency department. Discussed the plan with the patient, they demonstrate verbal understanding and agreement with our assessment and plan at this time. The documentation in this chart was dictated using [employer] dictation software. Please excuse any dictation errors. HPI General Date/Time Provider Initiated Documentation: 10/30/20 19:57 . HPI Narrative: 39-year-old female with no significant past medical history aside for occasional allergies presents today for evaluation of crusting in the right eye and mild nasal congestion. She states that the symptoms have been present for the last few days. She has been using an antihistamine drop in her eyes but this does not improve them at all. She denies any nausea vomiting headache neck pain fever, chills, chest pain or shortness of breath. She denies any trauma. She denies any vision changes or eye pain. No other complaints this time. Related Data Home Medications Medication Instructions Recorded Confirmed citalopram 30 mg PO DAILY 06/19/18 10/30/20 clonazepam 0.5 - 1 mg PO DAILY 06/19/18 10/30/20 meclizine 12.5 mg PO PRN PRN 06/19/18 10/30/20 omega 1-aoh-ryj-fish oil [Fish Oil] 1 cap PO DAILY 08/26/18 10/30/20 cholecalciferol (vitamin D3) 100 4,000 unit PO DAILY 03/31/19 10/30/20 mcg (4,000 unit) capsule ibuprofen 800 mg PO QID PRN 05/20/20 10/30/20 loratadine 10 mg PO DAILY 05/20/20 10/30/20 Allergies Allergy/AdvReac Type Severity Reaction Status Date / Time No Known Allergies Allergy Unverified 10/30/20 19:58 General Stated Complaint: EyeProblem VICKIE: 5 Review of Systems All systems reviewed & are unremarkable except as noted in HPI and below PFSH Medical History No significant past medical history Surgical History S/P tubal ligation Social History Smoking/Tobacco Use Status: Former Tobacco Use Smoking risk assessment performed?: Yes Alcohol Intake: current Alcohol Intake frequency: holidays/special occasions only Drug use: Never Substance use type: does not use Do you feel safe at home: Yes Do you feel safe in your relationship?: Yes Exam Narrative Exam Narrative: 1.Const: Well-nourished, Well-developed, appearing stated age 2.Eyes: PERRL, symmetrical lids. Please see ENT 3.ENT: Atraumatic external nose and ears. Moist MM. Neck: Symmetric, trachea midline, No thyromegaly. Mild conjunctival irritation. No tenderness on percussion of the frontal or maxillary sinuses. Ears are unremarkable and clear with no evidence of infection aside for evidence of a small amount of fluid behind the tympanic membrane which is clear, with some small bubbles suggestive of allergies. 4.CVS: +S1/S2, No murmurs or gallops. Peripheral pulses 2+ and equal in all extremities. Brisk capillary refill in all extremities. 5.RESP: Unlabored respiratory effort. Clear to auscultation bilaterally. No wheezes rales or rhonchi 6.GI: Soft, Nontender/Nondistended, No hepatosplenomegaly. No guarding or rebound. 7.MSK: Normocephalic/Atraumatic, Extremities w/o deformity or ttp No cyanosis or clubbing, Normal movement of all extremities 8.Skin: Warm, Dry. No rashes or lesions. 9.Neuro: manager transfer II-XII grossly intact. Sensation grossly intact, no focal neurologic deficits. 10.Psych: (AAO) x3. Appropriate mood and affect Course Vital Signs Vital signs: Vital Signs Temperature 36.7 C 10/30/20 19:54 Pulse 86 10/30/20 19:54 Respiratory Rate 18 10/30/20 19:54 Blood Pressure 124/70 10/30/20 19:54 Pulse Oximetry 95 10/30/20 19:54 Temperature 36.7 C 10/30/20 19:54 Temperature Source Skin 10/30/20 19:54 Pulse 86 10/30/20 19:54 Respiratory Rate 18 10/30/20 19:54 Blood Pressure 124/70 10/30/20 19:54 Pulse Oximetry 95 10/30/20 19:54 Oxygen Delivery Method Room Air 10/30/20 19:54 Oxygen Flow Rate 0 10/30/20 19:54 Pain Level 0 10/30/20 19:54
[2020-10-30] MEDS: Ciprofloxacin 0.3% 2.5 ML BTL OU (20:17)
== END 2020-10-30 20:18 | disposition home or self-care (01) ==
PROVIDERS: Emergency Provider Student in an Organized Health Care Education/Training Program; PCP Family Medicine
DX: H10.13 Acute atopic conjunctivitis, bilateral (principal); H10.33 Unspecified acute conjunctivitis, bilateral
CPT/HCPCS: 99283

== ENCOUNTER 2020-11-10 15:51 | Outpatient (REF) | payer MEDICAID, SELFPAY ==
[2020-11-10 19:32] LABS: Anion Gap 7.7 mmol/L (3-11); BUN 12 mg/dL (7-18); C-Reactive Protein 0.31 mg/dL (0.0-0.3); CO2 29.3 mmol/L (21.0-32.0); Calcium 9.3 mg/dL (8.5-10.1); Chloride 103 mmol/L (98-107); Glucose 105 mg/dL (74-106); Potassium 3.7 mmol/L (3.5-5.1); Sodium 140 mmol/L (136-145)
[2020-11-10 19:40] LABS: ESR 28 mm/hr (0-20)
== END 2020-11-10 15:52 | disposition home or self-care (01) ==
LOC: NCHCN 15:51
PROVIDERS: PCP Family Medicine; Visit Provider Family Medicine
DX: K52.9 Noninfective gastroenteritis and colitis, unspecified (principal)
CPT/HCPCS: 80048; 85652; 86140

== ENCOUNTER 2020-12-08 00:44 | Outpatient (CLI) | payer MEDICAID, SELFPAY ==
--- NOTE | 2020-12-08 | DI.MRI_ITS ---
Exam(s) MR LUMBAR SPINE WO EXAM: MR LUMBAR SPINE WO CLINICAL HISTORY: PROGRESSIVE LOW BACK PAIN,M54.5,BILAT LE RADICULOPATHY. TECHNIQUE: Multiplanar multisequence MRI of the Lumbar spine was performed. COMPARISON: Plain films of 04/21/2019 were reviewed FINDINGS: Conus medullaris is at normal level. There is no evidence of conus mass nor subjacent clumping of in trathecal nerve roots to suggest arachnoiditis. The distal thecal sac appears unremarkable.There is no evidence of Tarlov intrasacral cysts nor other significant findings within the sacral canal Bones:There are no fractures nor ominous osseous lesions in the lumbar vertebral bodies and visualize d sacrum. With respect to the individual levels... T12-L1: Unremarkable L1-2: Normal disc height and signal. No disc herniation nor central canal stenosis.No foraminal steno sis L2-3: Normal disc height. No disc herniation nor central canal stenosis.No foraminal stenosis.No face t arthropathy. L3-4: Normal disc height. No disc herniation or central canal stenosis.No foraminal stenosis.No face t arthropathy. L4-5: Normal disc height and signal. No disc herniation. No central spinal canal stenosis. No fora joce stenosis. Minimal facet degenerative changes. L5-S1: Normal disc height and signal. No disc herniation. No central spinal canal stenosis. Some d egenerative changes are noted in the facet joints, right more than left. No prominent foraminal sten osis. Soft tissues: paraspinal soft tissues appear unremarkable. IMPRESSION: 1. Normal disc height and hydration signal at each level. No disc herniation. No central spinal can al stenosis. No prominent foraminal stenosis 2. Some degenerative changes seen in the facet joints at L5-S1 level, slightly more prominent on the right side. 3. No osseous lesions. No listhesis. No pars defects DATA REPOSITORY:
== END 2020-12-08 01:04 ==
PROVIDERS: PCP Family Medicine; Visit Provider Family Medicine
DX: M54.16 Radiculopathy, lumbar region (principal); M47.27 Other spondylosis with radiculopathy, lumbosacral region
CPT/HCPCS: 72148

== ENCOUNTER 2021-01-10 11:12 | Outpatient (REF) | payer MEDICAID, SELFPAY ==
[2021-01-11 15:44] LABS: COVID-19 RT-PCR UVMMC Result Negative (Negative)
== END 2021-01-10 11:13 | disposition home or self-care (01) ==
LOC: LBN 11:12
PROVIDERS: PCP Family Medicine; Visit Provider Family Medicine
DX: Z20.822 Contact with and (suspected) exposure to COVID-19 (principal); J06.9 Acute upper respiratory infection, unspecified
CPT/HCPCS: U0003

== ENCOUNTER 2021-02-01 13:48 | Outpatient (REF) | payer MEDICAID, SELFPAY ==
[2021-02-02 18:09] LABS: COVID-19 RT-PCR UVMMC Result Negative (Negative)
== END 2021-02-01 13:49 | disposition home or self-care (01) ==
LOC: NCHCN 13:48
PROVIDERS: PCP Family Medicine; Visit Provider Physician Assistant Medical
DX: Z20.822 Contact with and (suspected) exposure to COVID-19 (principal)
CPT/HCPCS: U0003

== ENCOUNTER 2021-03-19 12:24 | Emergency (ER) | payer MEDICAID, SELFPAY ==
[2021-03-19 12:25] VITALS: BP 131/80; PULSE 93; RESP 12; TEMP 36.7; O2SAT 99
--- NOTE | 2021-03-19 13:15 | DI.RAD_ITS ---
Exam(s) XR PORTABLE CHEST AP EXAM: XR PORTABLE CHEST AP CLINICAL HISTORY: cough, sob, r/o pneumonia. TECHNIQUE: 2D digital imaging was performed. COMPARISON: CR CHEST 2 VIEWS PA,LAT from 04/06/2014 FINDINGS: LUNGS: Clear. No pleural abnormality seen. HEART: Normal. MEDIASTINUM: Normal. OTHER FINDINGS: None. IMPRESSION: No acute pulmonary findings. DATA REPOSITORY: RADIATION DOSE DELIVERED: Total DLP
--- NOTE | 2021-03-19 13:16 | DI.VRAD_ITS ---
PROCEDURE INFORMATION: Exam: XR Chest Exam date and time: 03/19/2021 12:32 PM Age: 40 years old Clinical indication: Cough and shortness of breath; Patient HX: SOB cough TECHNIQUE: Imaging protocol: XR of the chest. Views: 1 view. COMPARISON: CR CHEST 2 VIEWS PA,LAT 04/06/2014 9:17 AM FINDINGS: Lungs: Clear lungs. Pleural spaces: No sizable pleural effusion. No pneumothorax. Heart/Mediastinum: Cardiomediastinal silhouette is within normal limits. Bones/joints: No acute displaced fracture or dislocation. IMPRESSION: No acute cardiopulmonary process. Dictated and Authenticated by: Hugo Martínez MD. Ordering:RAFAL Bryan MD
--- NOTE | 2021-03-19 13:59 | W.ED.GENAD ---
Discharge Plan Disposition Patient Disposition: HOME Condition: Stable Discharge Details Clinical Impression: Viral URI with cough, Sinusitis Primary Care Provider: Shy Courtney V ED Provider: Randi Anderson Home Meds and New Rx's Prescriptions: New amoxicillin-pot clavulanate [Augmentin] 875-125 mg tablet 1 tab PO BID 7 Days Qty: 14 RF: 0 benzonatate 100 mg capsule 100 mg PO TID PRN (Reason: cough) Qty: 14 RF: 0 No Action cholecalciferol (vitamin D3) 4,000 unit capsule 4,000 unit PO DAILY RF: 0 citalopram 20 mg Tablet 30 mg PO DAILY RF: 0 clonazepam 1 mg Tablet 0.5 - 1 mg PO DAILY RF: 0 meclizine 12.5 mg Tablet 12.5 mg PO PRN PRNRF: 0 omega 4-lhu-lfj-fish oil [Fish Oil] 1,000 mg (120 mg-180 mg) Capsule 1 cap PO DAILY RF: 0 loratadine 10 mg tablet 10 mg PO DAILY RF: 0 ibuprofen 600 mg tablet 800 mg PO QID PRN (Reason: pain) RF: 0 Discharge Instructions Instructions: Sinusitis (ED), Upper Respiratory Infection (ED), Acute Cough (ED) Additional Instructions: Your symptoms may most likely be due to a viral upper respiratory tract infection such as sinusitis. If your symptoms do not improve or worsen, you may progress into a bacterial infection which is best treated with antibiotics. Drink plenty of fluids and get plenty of rest. Alternate tylenol and motrin as needed and directed for pain. You can also try fslb-rgq-[id number] cough and cold medications such as DayQuil or NyQuil. You can also try xhfb-[id number] Afrin for your nasal congestion but do not use more than 3 days. Be careful not to take additional Tylenol if you are taking DayQuil or NyQuil. A prescription for antibiotics has been sent electronically to your pharmacy. You can hold on taking the antibiotics unless your symptoms do not improve or worsen over the next 2 to 5 days. A prescription for cough medication has been sent electronically to your pharmacy. You can also continue to take your Flonase as directed. Follow-up with your primary care doctor in 1 week. Return to the emergency department with any worsening or new concerning symptoms. Please quarantine until your Covid-19 test result is available and confirmed to be negative. Stand Alone Forms: PENDING COVID-19 TESTING Discharge Data Discharge Date/Time-TO BE ENTERED AT DEPARTURE: 03/19/21 14:13 Discharge Physician: Randi Anderson Medical Decision Making 40yo F presents with nasal congestion, green nasal discharge, cough with green sputum and pain in her lungs with coughing for the past 4 days. Denies fever, shortness of breath or chest pain. Urine test negative. Pt appears comfortable and nontoxic. She is speaking in full sentences without signs of respiratory distress. Normal ENT exam. Lungs clear b/l w/o wheezing, rales or rhonchi. CXR negative. Send out covid swab obtained and pending. Suspect most likely viral uri with cough vs sinusitis. History and presentations does not appear c/w acs, pe, or dissection. Discussed with pt that her symptoms could be viral and best respond to fluids, rest, supportive care and otc medications for congestion and cough. As she had green nasal discharge and green sputum, discussed that symptoms could progress to bacterial illness so will send a prescription for antibiotics to her pharmacy if symptoms do not improve or worsen. Prescriptions for augmentin and tessalon perles sent electronically to his pharmacy. Advised to f/u with her pcp for re-evaluation. Usual and customary return precautions given prior to discharge. Medical Records Medical records reviewed: Yes I reviewed the patient's medical records. Imaging Data Radiologic Study: Radiologist's impression: XR Chest Exam date and time: 03/19/2021 12:32 PM Age: 40 years old Clinical indication: Cough and shortness of breath; Patient HX: SOB cough TECHNIQUE: Imaging protocol: XR of the chest. Views: 1 view. COMPARISON: CR CHEST 2 VIEWS PA,LAT 04/06/2014 9:17 AM FINDINGS: Lungs: Clear lungs. Pleural spaces: No sizable pleural effusion. No pneumothorax. Heart/Mediastinum: Cardiomediastinal silhouette is within normal limits. Bones/joints: No acute displaced fracture or dislocation. IMPRESSION: No acute cardiopulmonary process. HPI General Mode of arrival: ambulatory. Date/Time Provider Initiated Documentation: 03/19/21 12:29. Limitations to Documentation: no limitations. Information obtained by: patient. HPI Narrative: Pt is a 40yo F who presents to the ED w/ a c/o cough and occasional pain in my lungs with coughing for the past 4 days. Pt states her symptoms started as nasal congestion and runny nose then developed into sore throat and cough. She states she has green nasal discharge and is coughing up green sputum. She states the cough is the symptoms bothering her the most. She denies any known fever, shortness of breath, chest pain, back pain, loss of sense of smell or taste, nausea, vomiting, diarrhea, leg swelling, recent travel or recent surgery. She states she has been taking ibuprofen for her symptoms with occasional relief. She states she is fully vaccinated for Covid and denies any known exposure to coronavirus. Related Data Home Medications Medication Instructions Recorded Confirmed citalopram 30 mg PO DAILY 06/19/18 03/19/21 clonazepam 0.5 - 1 mg PO DAILY 06/19/18 03/19/21 meclizine 12.5 mg PO PRN PRN 06/19/18 03/19/21 omega 5-kfr-pae-fish oil [Fish Oil] 1 cap PO DAILY 08/26/18 03/19/21 cholecalciferol (vitamin D3) 100 4,000 unit PO DAILY 03/31/19 03/19/21 mcg (4,000 unit) capsule ibuprofen 800 mg PO QID PRN 05/20/20 03/19/21 loratadine 10 mg PO DAILY 05/20/20 03/19/21 amoxicillin-pot clavulanate 1 tab PO BID 7 Days #14 tab 03/19/21 [Augmentin] benzonatate 100 mg PO TID PRN #14 cap 03/19/21 Previous Rx's Medication Instructions Recorded amoxicillin-pot clavulanate 1 tab PO BID 7 Days #14 tab 03/19/21 [Augmentin] benzonatate 100 mg PO TID PRN #14 cap 03/19/21 Allergies Allergy/AdvReac Type Severity Reaction Status Date / Time No Known Allergies Allergy Unverified 03/19/21 12:30 General Stated Complaint: RespSymp VICKIE: 4 Review of Systems All systems reviewed & are unremarkable except as noted in HPI and below Constitutional Constitutional: Reports as per HPI, Denies chills and Denies fever(s) Eyes Eyes: Denies blurry vision ENT Ears, Nose, Mouth, and Throat: Denies dizziness, Reports nasal congestion, Reports nasal discharge, Denies sore throat and Denies throat swelling Cardiovascular Cardiovascular: Denies chest pain and Denies dyspnea Respiratory Respiratory: Reports cough and Denies dyspnea Gastrointestinal Gastrointestinal: Denies abdominal pain, Denies diarrhea and Denies vomiting Genitourinary Genitourinary: Denies hematuria and Denies dysuria Musculoskeletal Musculoskeletal: Denies back pain and Denies numbness Integumentary/Breasts Skin/Breast: Denies lesions and Denies rash Neurologic Neurologic: Denies dizziness, Denies localized weakness and Denies numbness Allergic/Immunologic Allergic/Immunologic: Denies throat swelling PFSH All Active Problems (Updated 03/19/21 @ 14:01 by Ranid Anderson DO) Acute streptococcal pharyngitis (Acute) Allergic conjunctivitis (Acute) Acute bacterial conjunctivitis of right eye (Acute) Viral URI with cough (Acute) Sinusitis (Acute) Dental infection (Acute) Vulvar abscess (Acute) Medical History No significant past medical history Surgical History S/P tubal ligation Social History Smoking/Tobacco Use Status: Former Tobacco Use Smoking risk assessment performed?: Yes Alcohol Intake: current Alcohol Intake frequency: holidays/special occasions only Drug use: Never Substance use type: does not use Do you feel safe at home: Yes Do you feel safe in your relationship?: Yes Exam Const General: cooperative, healthy appearing and no acute distress [facility] Head: normal to inspection Ears: hearing grossly normal bilaterally, external ears normal and TM's normal bilaterally General nose exam: external nose normal Face and sinus: normal facial exam Mouth: oral mucosae normal Throat: posterior oropharynx normal, uvula midline, no peritonsillar masses and normal posterior oropharynx Eyes General: appearance normal, both eyes and all related structures EOM: EOM intact bilaterally Neck Neck: normal visual inspection and No submandibular swelling Lymphatic: no lymphadenopathy noted Chest Chest: normal inspection of the chest and no tenderness Resp Effort & Inspection: normal respiratory effort and able to speak in complete sentences Auscultation: clear to auscultation bilaterally Cardio Rate: regular rate Rhythm: regular rhythm GI Inspection: normal to inspection Palpation: soft, not firm, not rigid and nontender Auscultation: normal bowel sounds Skin General skin exam: no rashes or lesions noted Neuro General: patient alert, patient awake, patient oriented x3, moves all extremities, no meningeal signs and no focal motor deficits Cognition: normal cognition Speech: speech normal Motor: muscle tone normal throughout Sensory Exam: no sensory deficits noted Extrem General: normal to inspection, full ROM, capillary refill normal, no calf tenderness bilaterally and no edema Psych Appearance: grossly normal Mental Status: mental status grossly normal Speech and Movement: speech and movement normal Affect: normal affect Course Vital Signs Vital signs: Vital Signs Temperature 98.0 F 03/19/21 12:25 Pulse 93 H 03/19/21 12:25 Respiratory Rate 12 03/19/21 12:25 Blood Pressure 131/80 03/19/21 12:25 Pulse Oximetry 99 03/19/21 12:25 Temperature 98.0 F 03/19/21 12:25 Temperature Source Temporal Artery Scan 03/19/21 12:25 Pulse 93 H 03/19/21 12:25 Respiratory Rate 12 03/19/21 12:25 Respiratory Effort Non-Labored 03/19/21 12:32 Respiratory Depth Normal 03/19/21 12:32 Blood Pressure 131/80 03/19/21 12:25 Blood Pressure Position Sitting 03/19/21 12:25 Pulse Oximetry 99 03/19/21 12:25 Oxygen Delivery Method Room Air 03/19/21 12:25 Oxygen Flow Rate 0 03/19/21 12:25 Pain Level 3 03/19/21 12:25 Lab/Test Results Lab/Test Results: POC- Test(urine) Negative
[2021-03-21 16:40] LABS: COVID-19 RT-PCR UVMMC Result Negative (Negative)
--- NOTE | 2021-03-22 09:35 | NUR.NOTE ---
called patient, verified identity and relayed negative covid test results to her.
== END 2021-03-19 14:13 | disposition home or self-care (01) ==
PROVIDERS: Emergency Provider Physician Assistant; PCP Family Medicine
DX: J02.9 Acute pharyngitis, unspecified (principal); J01.90 Acute sinusitis, unspecified; Z20.822 Contact with and (suspected) exposure to COVID-19
CPT/HCPCS: 81025; 99283; U0003; 71045

== ENCOUNTER 2021-03-31 11:49 | Outpatient (REF) | payer MEDICAID, SELFPAY ==
[2021-04-01 01:08] LABS: COVID-19 RT-PCR UVMMC Result Negative (Negative)
== END 2021-03-31 11:50 | disposition home or self-care (01) ==
LOC: LBN 11:49
PROVIDERS: PCP Family Medicine; Visit Provider Physician Assistant Medical
DX: Z20.822 Contact with and (suspected) exposure to COVID-19 (principal)
CPT/HCPCS: U0003

== ENCOUNTER 2021-04-17 19:33 | Outpatient (REF) | payer MEDICAID, SELFPAY ==
[2021-04-18 20:10] LABS: COVID-19 RT-PCR UVMMC Result Negative (Negative)
== END 2021-04-17 19:34 | disposition home or self-care (01) ==
LOC: LBN 19:33
PROVIDERS: PCP Family Medicine; Visit Provider Family Medicine
DX: Z20.822 Contact with and (suspected) exposure to COVID-19 (principal); J06.9 Acute upper respiratory infection, unspecified
CPT/HCPCS: U0003

== ENCOUNTER 2021-05-03 22:08 | Outpatient (REF) | payer MEDICAID, SELFPAY ==
[2021-05-05 13:22] LABS: COVID-19 RT-PCR UVMMC Result Negative (Negative)
== END 2021-05-03 22:09 | disposition home or self-care (01) ==
LOC: LBN 22:08
PROVIDERS: PCP Family Medicine; Visit Provider Physician Assistant Medical
DX: Z20.822 Contact with and (suspected) exposure to COVID-19 (principal)
CPT/HCPCS: U0003

== ENCOUNTER 2021-07-05 16:42 | Emergency (ER) | payer MEDICAID, SELFPAY ==
--- NOTE | 2021-07-05 16:45 | DI.RAD_ITS ---
Exam(s) XR PORTABLE CHEST AP EXAM: XR PORTABLE CHEST AP CLINICAL HISTORY: cough. TECHNIQUE: 2D digital imaging was performed. COMPARISON: No exams were available for comparison FINDINGS: Single AP portable view. Heart size is upper normal. The mediastinum is not widened. Lungs are clear. No infiltrates nor obvious pleural effusions. IMPRESSION: No acute pulmonary findings on this single AP portable view of the chest. DATA REPOSITORY: RADIATION DOSE DELIVERED: All CT scans at this facility use at least one of these dose optimization techniques: automated exposure control; mA and/or kV adjustment per patient size (includes targeted e xams where dose is matched to clinical indication); or iterative reconstruction.
[2021-07-05 16:50] VITALS: BP 119/70; PULSE 95; RESP 16; TEMP 36.8; O2SAT 99
--- NOTE | 2021-07-05 17:41 | ED.GENADUL_ITS ---
Discharge Plan Disposition Patient Disposition: HOME Condition: Improving Discharge Details Clinical Impression: Acute bronchitis Primary Care Provider: Shy Courtney V ED Provider: Randi Anderson Home Meds and New Rx's Prescriptions: New prednisone 20 mg tablet See Rx Instructions .ROUTE .COMPLEX Qty: 18 0RF Rx Instructions: Take 3 tabs daily for 3 days, then 2 tabs daily for 3 days, then 1 tab daily for 3 days. benzonatate 100 mg capsule 100 mg PO TID PRN (Reason: cough) Qty: 10 0RF Continued cholecalciferol (vitamin D3) 4,000 unit capsule 4,000 unit PO DAILY 0RF fluticasone propionate [Flonase Allergy Relief] 50 mcg/actuation spray,suspension 2 spray intranasal .weekly 0RF Rx Instructions: administer into each nostril loratadine 10 mg capsule 10 mg PO DAILY 0RF clindamycin phosphate [Cleocin T] 1 % solution 1 applic topical BID 0RF citalopram 20 mg Tablet 40 mg PO DAILY 0RF clonazepam 1 mg Tablet 0.5 - 1 mg PO DAILY 0RF Rx Instructions: 1mg QAM 0.5mg HS meclizine 12.5 mg Tablet 12.5 mg PO PRN PRN0RF ibuprofen 600 mg tablet 800 mg PO QID PRN (Reason: pain) 0RF benzonatate 100 mg capsule 100 mg PO TID PRN (Reason: cough) Qty: 14 0RF Discharge Instructions Instructions: Acute Bronchitis (ED) Additional Instructions: Your chest x-ray is negative for any acute disease today. Please quarantine until your COVID test result is available and if confirmed to be negative. It is suspected that your symptoms are secondary to acute bronchitis which is a viral illness. You are being sent home with cough medication and an albuterol inhaler to use as needed and directed for coughing wheezing or shortness of breath. A prescription for cough medication and steroids has been sent electronically to your pharmacy. Take the next dose of steroids tomorrow. Follow-up with your primary care doctor in 1 week. Return to the emergency department with any worsening or new concerning symptoms. Stand Alone Forms: Work Release Discharge Data Discharge Physician: Randi Anderson Medical Decision Making 40-year-old female with a history of depression, anxiety and tubal ligation presents for dry cough, wheezing and back pain for the past few days. Denies any fever or significant shortness of breath. Vitals within normal limits. She appears comfortable and nontoxic. Normal ENT exam. Chest and back normal to inspection. She has diffuse expiratory wheezing and rhonchi throughout. History and presentation does not appear consistent with PE, ACS or dissection. She is PERC negative. Send out COVID and portable chest x-ray ordered. Allergy list note reaction of shakiness with albuterol but states she has received both in the past and is agreeable with DuoNeb at this time. Also give a dose of IM Toradol for suspected musculoskeletal back pain and p.o. prednisone and reassess. X-ray reviewed and negative. Patient reassessed and she feels much better. She feels patient states she feels comfortable going home. She would like to take an albuterol inhaler at home. She was given cough medication to go home. A prescription for steroids and cough medication sent electronically to her pharmacy. Discussed that I do not see an indication for antibiotic this time and she is agreeable. She requested a work note. Advised to follow up with the primary care doctor for re-evaluation. Usual and customary return precautions given prior to discharge. Medical Records Medical records reviewed: Yes I reviewed the patient's medical records. Imaging Data Radiologic Study: Radiologist's impression: XR Chest Exam date and time: 07/05/2021 5:27 PM Age: 40 years old Clinical indication: Other: Cough TECHNIQUE: Imaging protocol: XR of the chest. Views: 1 view. COMPARISON: XR PORTABLE CHEST AP 03/19/2021 12:53 PM FINDINGS: Lungs: Unremarkable. No consolidation. Pleural spaces: Unremarkable. No pleural effusion. No pneumothorax. Heart/Mediastinum: Unremarkable. No cardiomegaly. Bones/joints: Unremarkable. IMPRESSION: No acute findings. HPI General Mode of arrival: ambulatory . Date/Time Provider Initiated Documentation: 07/05/21 16:59 . Limitations to Documentation: no limitations . Information obtained by: patient . HPI Narrative: Patient is a 40-year-old female with a history of depression, tubal ligation who presents for cough and back pain for the past few days. Patient states that she really has a dry cough but states she occasionally coughs up clear mucus. She states her back pain is in her mid back and feels deep and achy. She states it is no worse with deep breath and denies any known injury. She denies any chest pain, fever, ear pain or sore throat. She states last week she had URI symptoms of nasal congestion, runny nose and sore throat but states is near resolved. She states she has received 2 COVID vaccines but denies any known recent exposure to COVID. She states she does work at the [employer]. Related Data Home Medications Medication Instructions Recorded Confirmed citalopram 20 mg tablet 40 mg PO DAILY 06/19/18 07/05/21 clonazepam 1 mg tablet 0.5 - 1 mg PO DAILY 06/19/18 07/05/21 meclizine 12.5 mg tablet 12.5 mg PO PRN PRN 06/19/18 07/05/21 cholecalciferol (vitamin D3) 100 4,000 unit PO DAILY 03/31/19 07/05/21 mcg (4,000 unit) capsule ibuprofen 600 mg tablet 800 mg PO QID PRN 05/20/20 07/05/21 benzonatate 100 mg capsule 100 mg PO TID PRN #14 cap 03/19/21 07/05/21 clindamycin phosphate 1 % topical 1 applic TOPICAL BID 05/26/21 07/05/21 solution (Cleocin T) fluticasone propionate 50 2 spray INTRANASAL .weekly g 05/26/21 07/05/21 mcg/actuation nasal spray,suspension (Flonase Allergy Relief) loratadine 10 mg capsule 10 mg PO DAILY 05/26/21 07/05/21 benzonatate 100 mg capsule 100 mg PO TID PRN #10 cap 07/05/21 prednisone 20 mg tablet See Rx Instructions .ROUTE 07/05/21 .COMPLEX #18 tab Previous Rx's Medication Instructions Recorded benzonatate 100 mg capsule 100 mg PO TID PRN #14 cap 03/19/21 benzonatate 100 mg capsule 100 mg PO TID PRN #10 cap 07/05/21 prednisone 20 mg tablet See Rx Instructions .ROUTE 07/05/21 .COMPLEX #18 tab Allergies Allergy/AdvReac Type Severity Reaction Status Date / Time albuterol Allergy shakiness Verified 07/05/21 16:54 bupropion [From Wellbutrin] Allergy Headache Verified 07/05/21 16:54 fluoxetine [From Prozac] Allergy increased Verified 07/05/21 16:54 depression General Stated Complaint: RespSymp VICKIE: 3 Review of Systems All systems reviewed & are unremarkable except as noted in HPI and below Constitutional Constitutional: Reports as per HPI, Denies chills and Denies fever(s) Eyes Eyes: Denies blurry vision ENT Ears, Nose, Mouth, and Throat: Denies dizziness, Denies sore throat and Denies throat swelling Cardiovascular Cardiovascular: Denies chest pain and Denies dyspnea Respiratory Respiratory: Reports cough and Denies dyspnea Gastrointestinal Gastrointestinal: Denies abdominal pain, Denies diarrhea and Denies vomiting Genitourinary Genitourinary: Denies hematuria and Denies dysuria Musculoskeletal Musculoskeletal: Reports back pain and Denies numbness Integumentary/Breasts Skin/Breast: Denies lesions and Denies rash Neurologic Neurologic: Denies dizziness, Denies localized weakness and Denies numbness Allergic/Immunologic Allergic/Immunologic: Denies throat swelling PFSH All Active Problems (Updated 07/05/21 @ 18:31 by Randi Anderson DO) Acute bronchitis (Acute) Acute streptococcal pharyngitis (Acute) Allergic conjunctivitis (Acute) Acute bacterial conjunctivitis of right eye (Acute) Dental infection (Acute) Vulvar abscess (Acute) Medical History (Updated 07/05/21 @ 18:31 by Randi Anderson DO) Carpal tunnel syndrome, bilateral Depression Diarrhea Eustachian tube dysfunction Exposure to COVID-19 virus Fatigue Generalized anxiety disorder Grief at loss of child Hidradenitis suppurativa History of tobacco use Insomnia Low back pain No significant past medical history Reaction, situational Scoliosis of thoracic spine Seasonal allergies Seborrheic dermatitis of scalp Sleep apnea Tinnitus Urinary disorder Vertigo Surgical History S/P tubal ligation Social History Smoking/Tobacco Use Status: Former Tobacco Use Smoking risk assessment performed?: Yes Alcohol Intake: current Alcohol Intake frequency: holidays/special occasions only Drug use: Never Substance use type: does not use Do you feel safe at home: Yes Do you feel safe in your relationship?: Yes Exam Const General: cooperative and no acute distress Orientation: alert, awake and oriented x3 HENMT Head: normal to inspection Ears: hearing grossly normal bilaterally, external ears normal and TM's normal bilaterally General nose exam: external nose normal Mouth: oral mucosae normal Throat: posterior oropharynx normal, uvula midline and no peritonsillar masses Eyes General: appearance normal, both eyes and all related structures Neck Neck: normal visual inspection Chest Chest: normal inspection of the chest Resp Effort & Inspection: normal respiratory effort and able to speak in complete sentences Auscultation: rhonchi upper bilaterally and lower bilaterally and wheezes expiratory wheezes Cardio Rate: regular rate Rhythm: regular rhythm Skin General skin exam: no rashes or lesions noted Neuro General: patient alert, patient awake and patient oriented x3 Motor: muscle tone normal throughout Extrem General: normal to inspection, full ROM and no edema Psych Appearance: grossly normal Affect: normal affect Course Vital Signs Vital signs: Vital Signs Temperature 98.2 F 07/05/21 16:50 Pulse 95 H 07/05/21 16:50 Respiratory Rate 16 07/05/21 16:50 Blood Pressure 119/70 07/05/21 16:50 Pulse Oximetry 99 07/05/21 16:50 Temperature 98.2 F 07/05/21 16:50 Temperature Source Skin 07/05/21 16:50 Pulse 95 H 07/05/21 16:50 Respiratory Rate 16 07/05/21 16:50 Respiratory Effort 07/05/21 16:50 Blood Pressure 119/70 07/05/21 16:50 Blood Pressure Position Sitting 07/05/21 16:50 Pulse Oximetry 99 07/05/21 16:50 Oxygen Delivery Method Room Air 07/05/21 16:50 Oxygen Flow Rate 0 07/05/21 16:50 Pain Level 0 07/05/21 16:50
[2021-07-05] MEDS: Albuterol/Ipratropium 3 ML UPD VIAL UPD (17:55)
[2021-07-05] MEDS: predniSONE 20 MG TAB 60 MG PO (17:55)
[2021-07-05] MEDS: Ketorolac 60 MG/2 ML VIAL IM (17:55)
--- NOTE | 2021-07-05 18:02 | DI.VRAD_ITS ---
PROCEDURE INFORMATION: Exam: XR Chest Exam date and time: 07/05/2021 5:27 PM Age: 40 years old Clinical indication: Other: Cough TECHNIQUE: Imaging protocol: XR of the chest. Views: 1 view. COMPARISON: XR PORTABLE CHEST AP 03/19/2021 12:53 PM FINDINGS: Lungs: Unremarkable. No consolidation. Pleural spaces: Unremarkable. No pleural effusion. No pneumothorax. Heart/Mediastinum: Unremarkable. No cardiomegaly. Bones/joints: Unremarkable. IMPRESSION: No acute findings. Dictated and Authenticated by: Rosaline Bey MD. Ordering:RACHEL Garcia MD
[2021-07-05] MEDS: Benzonatate 100 MG CAP 200 MG PO (18:41)
[2021-07-05] MEDS: Albuterol HFA 8 GM 60 PUFF INH IH (18:41)
[2021-07-06 21:23] LABS: COVID-19 RT-PCR UVMMC Result Negative (Negative)
== END 2021-07-05 18:45 | disposition home or self-care (01) ==
PROVIDERS: Physician Assistant; Emergency Provider Physician Assistant; PCP Family Medicine
DX: J20.9 Acute bronchitis, unspecified (principal); R05.1 Acute cough; Z20.822 Contact with and (suspected) exposure to COVID-19
CPT/HCPCS: 81025; 96372; 99284; U0003; 71045; J1885; J7512; J7620

== ENCOUNTER 2021-07-11 11:13 | Outpatient (REF) | payer MEDICAID, SELFPAY ==
[2021-07-18 13:45] LABS: 2-OH-Ethyl-Flurazepam Negative ng/mL (Cutoff: 10); 7-NH-Clonazepam 295 ng/mL (Cutoff: 10); 7-NH-Flunitrazepam Negative ng/mL (Cutoff: 10); Alpha OH-Alprazolam Negative ng/mL (Cutoff: 10); Alpha-OH Midazolam Negative ng/mL (Cutoff: 10); Alpha-OH-Triazolam Negative ng/mL (Cutoff: 10); Alprazolam Negative ng/mL (Cutoff: 10); Benzodiazepines Interpretation Positive.; Chlordiazepoxide Negative ng/mL (Cutoff: 10); Clobazam Negative ng/mL (Cutoff: 10); Clonazepam Negative ng/mL (Cutoff: 10); Diazepam Negative ng/mL (Cutoff: 10); Flurazepam Negative ng/mL (Cutoff: 10); Lorazepam Negative ng/mL (Cutoff: 10); Midazolam Negative ng/mL (Cutoff: 10); N-Desmethylclobazam Negative ng/mL (Cutoff: 10); Prazepam Negative ng/mL (Cutoff: 10); Temazepam Negative ng/mL (Cutoff: 10); Triazolam Negative ng/mL (Cutoff: 10); Zolpidem Carboxylic acid Negative ng/mL (Cutoff: 10)
== END 2021-07-11 11:14 | disposition home or self-care (01) ==
LOC: NCHCN 11:13
PROVIDERS: PCP Family Medicine; Visit Provider Family Medicine
DX: M54.59 Other low back pain (principal); R82.5 Elevated urine levels of drugs, medicaments and biological substances
CPT/HCPCS: 80346

== ENCOUNTER 2021-10-02 19:38 | Outpatient (REF) | payer MEDICAID, SELFPAY ==
[2021-10-04 11:22] LABS: COVID-19 RT-PCR UVMMC Result Negative (Negative)
== END 2021-10-02 19:39 | disposition home or self-care (01) ==
LOC: LBN 19:38
PROVIDERS: PCP Family Medicine; Visit Provider Nurse Practitioner Family
DX: J32.9 Chronic sinusitis, unspecified (principal); Z20.822 Contact with and (suspected) exposure to COVID-19
CPT/HCPCS: U0003

== ENCOUNTER 2022-05-31 08:57 | Emergency (ER) | payer MEDICAID, SELFPAY ==
[2022-05-31 09:04] VITALS: BP 122/75; PULSE 89; RESP 16; TEMP 36.5; O2SAT 97
[2022-05-31 09:06] VITALS: RESP 16
--- NOTE | 2022-05-31 09:23 | ED.GENADUL_ITS ---
Discharge Plan Disposition Patient Disposition: Home Discharge Details Clinical Impression: Peripheral positional vertigo of right ear Primary Care Provider: Shy Courtney V ED Provider: Kristofer Batista Home Meds and New Rx's Prescriptions: New meclizine 12.5 mg tablet 12.5 - 25 mg PO BID-QID PRN (Reason: motion sickness) Qty: 30 0RF Continued cholecalciferol (vitamin D3) 4,000 unit capsule 4,000 unit PO DAILY fluticasone propionate [Flonase Allergy Relief] 50 mcg/actuation spray,suspension 2 spray intranasal .weekly Rx Instructions: administer into each nostril loratadine 10 mg capsule 10 mg PO DAILY citalopram 20 mg Tablet 40 mg PO DAILY clonazepam 1 mg Tablet 0.5 - 1 mg PO DAILY Rx Instructions: 1mg QAM 0.5mg HS Discontinued clindamycin phosphate [Cleocin T] 1 % solution 1 applic topical BID meclizine 12.5 mg Tablet 12.5 mg PO PRN PRN prednisone 20 mg tablet See Rx Instructions .ROUTE .COMPLEX Qty: 18 0RF Rx Instructions: Take 3 tabs daily for 3 days, then 2 tabs daily for 3 days, then 1 tab daily for 3 days. benzonatate 100 mg capsule 100 mg PO TID PRN (Reason: cough) Qty: 10 0RF ibuprofen 600 mg tablet 800 mg PO QID PRN (Reason: pain) benzonatate 100 mg capsule 100 mg PO TID PRN (Reason: cough) Qty: 14 0RF Discharge Instructions Instructions: Vertigo (ED) Additional Instructions: With vertigo type events please be cautious with any driving, operating machiner y, or utilization of any dangerous items. Also be cautious with use of meclizine as this may make you feel slightly sedated. Perform very slow movements of your head as this may exacerbate symptoms. Also stay well-hydrated and get plenty of rest. If you develop any severe changes of your symptoms feel free to return the emergency department otherwise follow-up with your primary care provider for reassessment if not improving Stand Alone Forms: Work Release Referrals: Shy Courtney MD [Primary Care Provider] - (As needed for reassessment or if not improving) Discharge Data Discharge Date/Time-TO BE ENTERED AT DEPARTURE: 05/31/22 09:43 Medical Decision Making Patient presenting to the emergency department for chief complaint of vertigo. Patient states that this started yesterday afternoon and denies any specific precipitating event. She does states she has a history of vertigo and this episode seems less mild. She does state recent nasal congestion. Review of past medical history does show history of vertigo, eustachian tube dysfunction anxiety and tendinitis. Physical exam shows no acute neurological findings, normal cranial nerve exam, patient does have air-fluid levels in right TM which patient also states feeling of rotational movement towards the right. Exam is otherwise unremarkable. Patient was agreeable to performing Tami maneuver as I feel that fluid behind right TM is because of patient's vertigo. Patient was able to perform this maneuver without any worsening of symptoms. Patient reassessed and stated slight improvement of symptoms after maneuver. We will give patient single dose of meclizine after discussion with her and will send her home with a prescription for further use of meclizine and Zofran. After discussion of diagnosis and plan of care patient has no further needs, questions, or concerns and states clear understanding to return to the emergency department for any worsening symptoms. This documentation was generated using [employer] system, please disregard any oddities of phrase or misspellings. HPI General Mode of arrival: ambulatory . Date/Time Provider Initiated Documentation: 05/31/22 08:59 . Limitations to Documentation: no limitations . Information obtained by: patient and RN notes reviewed . History of Present Deyvi stokes 41 year old F presents to the emergency department with the chief complaint of Vertigo, described as mild, moderate and similar to prior episodes, Patient started experiencing this day(s) (1) and it has been constant. No relieving factors improve symptom(s), Movement worsens symptoms . Patient did receive the following treatments prior to arrival, none Related Data Home Medications Medication Instructions Recorded Confirmed citalopram 20 mg tablet 40 mg PO DAILY 06/19/18 07/05/21 clonazepam 1 mg tablet 0.5 - 1 mg PO DAILY 06/19/18 07/05/21 cholecalciferol (vitamin D3) 100 4,000 unit PO DAILY 03/31/19 07/05/21 mcg (4,000 unit) capsule fluticasone propionate 50 2 spray intranasal .weekly 05/26/21 07/05/21 mcg/actuation nasal spray,suspension (Flonase Allergy Relief) loratadine 10 mg capsule 10 mg PO DAILY 05/26/21 07/05/21 meclizine 12.5 mg tablet 12.5 - 25 mg PO BID-QID PRN motion 05/31/22 sickness #30 tabs Previous Rx's Medication Instructions Recorded meclizine 12.5 mg tablet 12.5 - 25 mg PO BID-QID PRN motion 05/31/22 sickness #30 tabs Allergies Allergy/AdvReac Type Severity Reaction Status Date / Time albuterol Allergy shakiness Verified 07/05/21 16:54 bupropion [From Wellbutrin] Allergy Headache Verified 07/05/21 16:54 fluoxetine [From Prozac] Allergy increased Verified 07/05/21 16:54 depression General Stated Complaint: GenMedical VICKIE: 3 Review of Systems Constitutional Constitutional: Denies body ache(s), Denies chills, Denies fever(s) and Denies headache(s) Eyes Eyes: Denies change in vision ENT Ears, Nose, Mouth, and Throat: Reports as per HPI, Reports vertigo, Denies headache(s) and Reports nasal congestion Cardiovascular Cardiovascular: Denies chest pain and Denies syncope Gastrointestinal Gastrointestinal: Reports nausea and Denies vomiting Neurologic Neurologic: Reports as per HPI, Reports vertigo, Denies syncope, Denies headache(s), Denies sensory deficit and Denies paresthesias PFSH All Active Problems (Updated 05/31/22 @ 09:35 by Kristofer Batista NP) Peripheral positional vertigo of right ear (Acute) Acute streptococcal pharyngitis (Acute) Allergic conjunctivitis (Acute) Acute bacterial conjunctivitis of right eye (Acute) Dental infection (Acute) Vulvar abscess (Acute) Medical History (Updated 05/31/22 @ 09:35 by Kristofer Batista NP) Carpal tunnel syndrome, bilateral Depression Diarrhea Eustachian tube dysfunction Exposure to COVID-19 virus Fatigue Generalized anxiety disorder Grief at loss of child Hidradenitis suppurativa History of tobacco use Insomnia Low back pain No significant past medical history Reaction, situational Scoliosis of thoracic spine Seasonal allergies Seborrheic dermatitis of scalp Sleep apnea Tinnitus Urinary disorder Vertigo Surgical History S/P tubal ligation Social History Smoking/Tobacco Use Status: Former Tobacco Use Smoking risk assessment performed?: Yes Alcohol Intake: current Alcohol Intake frequency: holidays/special occasions only Drug use: Never Substance use type: does not use Do you feel safe at home: Yes Do you feel safe in your relationship?: Yes Exam Const General: cooperative, healthy appearing, no acute distress and well groomed Orientation: alert, awake and oriented x3 HENMT Head: normal to inspection Ears: hearing grossly normal bilaterally Mouth: oral mucosae normal and moist mucous membranes Throat: posterior oropharynx normal Eyes Visual Mac: normal visual mac by confrontation Alignment and Position: alignment normal Periorbital: periorbital findings normal Eyelids: eyelids normal Sclera: sclerae normal Cornea: corneas normal Pupils: PERRL EOM: EOM intact bilaterally Neck Neck: normal visual inspection, full ROM and no meningeal signs Resp Effort & Inspection: normal respiratory effort and able to speak in complete sentences Auscultation: clear to auscultation bilaterally Cardio Rate: regular rate Rhythm: regular rhythm Heart Sounds: S1 normal and S2 normal Neuro General: patient alert, patient awake, patient oriented x3, gait normal, tone normal, moves all extremities, CN's II-XI intact bilaterally and not confused Cognition: normal cognition Speech: speech normal Motor: muscle tone normal throughout, strength 5/5 throughout, no pronator drift, no movement abnormalities noted and no fasciculations Sensory Exam: no sensory deficits noted Coordination: Does not sway with eyes open Course Vital Signs Vital signs: Vital Signs Temperature 36.5 C 05/31/22 09:04 Pulse 89 05/31/22 09:04 Respiratory Rate 16 05/31/22 09:04 Blood Pressure 122/75 05/31/22 09:04 Pulse Oximetry 97 05/31/22 09:04 Temperature 36.5 C 05/31/22 09:04 Temperature Source Oral 05/31/22 09:04 Pulse 89 05/31/22 09:04 Respiratory Rate 16 05/31/22 09:06 Respiratory Effort Normal 05/31/22 09:06 Respiratory Depth Normal 05/31/22 09:06 Respiratory Pattern Normal 05/31/22 09:06 Blood Pressure 122/75 05/31/22 09:04 Blood Pressure Position Sitting 05/31/22 09:04 Pulse Oximetry 97 05/31/22 09:04 Oxygen Delivery Method Room Air 05/31/22 09:04 Oxygen Flow Rate 0 05/31/22 09:04 Pain Level 0 05/31/22 09:04
[2022-05-31] MEDS: Meclizine 25 MG TAB PO (09:42)
[2022-05-31] MEDS: Ondansetron O.D.T. 4 MG TABEF, 3 TABS/BTL PO (09:42)
== END 2022-05-31 09:43 | disposition home or self-care (01) ==
PROVIDERS: Emergency Provider Nurse Practitioner Family; PCP Family Medicine
DX: H81.11 Benign paroxysmal vertigo, right ear (principal)
CPT/HCPCS: 99283; 99284

== ENCOUNTER 2022-07-02 10:12 | Emergency (ER) | payer MEDICAID, SELFPAY ==
[2022-07-02 10:15] VITALS: BP 126/79; PULSE 84; RESP 16; TEMP 36.6; O2SAT 98
--- NOTE | 2022-07-02 10:27 | W.ED.GENAD ---
Discharge Plan Disposition Patient Disposition: Home Condition: Good Discharge Details Clinical Impression: Cervical muscle pain, Cervical paraspinal muscle spasm Primary Care Provider: Shy Courtney V ED Provider: Ronda Almeida Home Meds and New Rx's Prescriptions: New methocarbamol 1,000 mg tablet 1,000 mg PO TID PRN (Reason: muscle spasm) Qty: 5 0RF Continued cholecalciferol (vitamin D3) 4,000 unit capsule 4,000 unit PO DAILY fluticasone propionate [Flonase Allergy Relief] 50 mcg/actuation spray,suspension 2 spray intranasal .weekly Rx Instructions: administer into each nostril loratadine 10 mg capsule 10 mg PO DAILY citalopram 20 mg Tablet 40 mg PO DAILY clonazepam 1 mg Tablet 0.5 - 1 mg PO DAILY Rx Instructions: 1mg QAM 0.5mg HS meclizine 12.5 mg tablet 12.5 - 25 mg PO BID-QID PRN (Reason: motion sickness) Qty: 30 0RF Discharge Instructions Instructions: Cervical Strain (ED), Musculoskeletal Pain (ED) Additional Instructions: Your exam is most concerning for muscle strain and spasm. Please encourage hydration. May continue with Tylenol and ibuprofen as needed for discomfort. Please take this as directed on packaging. You may also use topical heat/ice, Lidocaine patches. Please encourage range of motion of your neck and gentle stretching. Attached is a referral to physical therapy, you may call any number listed at the top to schedule follow-up appointment. Have also sent a prescription for muscle relaxant. Please take this only as directed. Do not drive will take this medication please do not take it when you are taking your clonazepam. If you develop any new or worsening symptoms please seek care urgently once again. Otherwise, please follow-up with primary care in 2 weeks for reevaluation. Stand Alone Forms: Physical Therapy Referral Referrals: Shy Courtney MD [Primary Care Provider] - Discharge Data Discharge Date/Time-TO BE ENTERED AT DEPARTURE: 07/02/22 10:41 Medical Decision Making Patient is a 41-year-old female presenting today with chief complaint of right-sided neck pain. Reports that it first began about 4 hours ago when she first woke. Has had similar episodes historically where she wakes up with a painful stiff neck. States that she took 400 mg of ibuprofen initially. She denies any recent trauma. She denies any headache currently. She denies any rash. No shortness of breath or chest pain. No change in breathing or swallowing. Has not had any recent illness. No radiation of pain. On exam, patient appears nontoxic. She is good strength and sensation in bilateral lower extremities. No midline tenderness. She has pain elicited with palpation as well as range of motion along the right side of the cervical spine out towards the trapezius. This area does feel slightly tight. She does have good range of motion although the extremes of any movement does induce some discomfort along this right side. At this time, I do not see any evidence to suggest infectious etiology, impinged nerve, I do not have suspicion for fracture or other traumatic cause. Advised likely recurrent muscle spasm. Encourage hydration. Discussed supportive measures. We will give ibuprofen, Tylenol and Lidoderm patch. Will prescribe methocarbamol which she may use when she is home and not driving. Advised that she not drink alcohol or take the clonazepam while taking this medication. Strict return precautions given. Advise follow-up with primary care. As this has been a recurrent issue for the patient we will also refer her to physical therapy in hopes that this will help with the acute discomfort as well as prevention. All of her questions and concerns were addressed and she is in agreement this plan. [facility] General Date/Time Provider Initiated Documentation: 07/02/22 10:13. Limitations to Documentation: no limitations. Information obtained by: patient, RN notes reviewed and old records reviewed. History of Present Illness 41 year old F presents to the emergency department with the chief complaint of right sided neck pain and stiffness, described as moderate and similar to prior episodes, Quality is described as aching and other (stiff), and is localized to the neck. Patient reports no radiation. Patient started experiencing this hour(s) (noted when she awoke just prior to arrival, this did not wake her) and it has been constant. Immobilization improves symptom(s), Movement worsens symptoms . Patient notes no other symptoms.. Patient did receive the following treatments prior to arrival, none Related Data Home Medications Medication Instructions Recorded Confirmed citalopram 20 mg tablet 40 mg PO DAILY 06/19/18 07/02/22 clonazepam 1 mg tablet 0.5 - 1 mg PO DAILY 06/19/18 07/02/22 cholecalciferol (vitamin D3) 100 4,000 unit PO DAILY 03/31/19 07/02/22 mcg (4,000 unit) capsule fluticasone propionate 50 2 spray intranasal .weekly 05/26/21 07/02/22 mcg/actuation nasal spray,suspension (Flonase Allergy Relief) loratadine 10 mg capsule 10 mg PO DAILY 05/26/21 07/02/22 meclizine 12.5 mg tablet 12.5 - 25 mg PO BID-QID PRN motion 05/31/22 07/02/22 sickness #30 tabs methocarbamol 1,000 mg tablet 1,000 mg PO TID PRN muscle spasm 07/02/22 #5 tabs Previous Rx's Medication Instructions Recorded meclizine 12.5 mg tablet 12.5 - 25 mg PO BID-QID PRN motion 05/31/22 sickness #30 tabs methocarbamol 1,000 mg tablet 1,000 mg PO TID PRN muscle spasm 07/02/22 #5 tabs Allergies Allergy/AdvReac Type Severity Reaction Status Date / Time albuterol Allergy shakiness Verified 07/02/22 10:18 bupropion [From Wellbutrin] Allergy Headache Verified 07/02/22 10:18 fluoxetine [From Prozac] Allergy increased Verified 07/02/22 10:18 depression General Stated Complaint: Nk/Back Pain VICKIE: 4 Review of Systems Constitutional Constitutional: Reports as per HPI, Denies chills, Denies fever(s), Denies headache(s) and Denies weakness ENT Ears, Nose, Mouth, and Throat: Denies headache(s) Cardiovascular Cardiovascular: Reports as per HPI Respiratory Respiratory: Reports as per HPI and Denies cough Musculoskeletal Musculoskeletal: Reports as per HPI and Denies tingling Integumentary/Breasts Skin/Breast: Reports as per HPI, Denies rash and Denies wounds Neurologic Neurologic: Reports as per HPI, Denies headache(s), Denies tingling, Denies paresthesias and Denies weakness PFSH All Active Problems (Updated 07/02/22 @ 10:29 by BERYL Syed) Cervical muscle pain (Acute) Cervical paraspinal muscle spasm (Acute) Acute streptococcal pharyngitis (Acute) Allergic conjunctivitis (Acute) Acute bacterial conjunctivitis of right eye (Acute) Dental infection (Acute) Vulvar abscess (Acute) Medical History (Updated 07/02/22 @ 10:29 by BERYL Syed) Carpal tunnel syndrome, bilateral Depression Diarrhea Eustachian tube dysfunction Exposure to COVID-19 virus Fatigue Generalized anxiety disorder Grief at loss of child Hidradenitis suppurativa History of tobacco use Insomnia Low back pain No significant past medical history Reaction, situational Scoliosis of thoracic spine Seasonal allergies Seborrheic dermatitis of scalp Sleep apnea Tinnitus Urinary disorder Vertigo Surgical History S/P tubal ligation Social History Smoking/Tobacco Use Status: Former Tobacco Use Smoking risk assessment performed?: Yes Alcohol Intake: current Alcohol Intake frequency: holidays/special occasions only Drug use: Never Substance use type: does not use Do you feel safe at home: Yes Do you feel safe in your relationship?: Yes Exam Const General: cooperative, healthy appearing, comfortable (walked in comfortably, carrying coffee and chatting with staff), no acute distress, well developed and well groomed Nutritional Appearance: well nourished and overweight Orientation: alert and awake [facility] Head: normal to inspection, normocephalic and atraumatic Eyes General: appearance normal, both eyes and all related structures Neck Neck: normal visual inspection, full ROM (stiff with discomfort at extremes but able to move to full ROM slowly), no lymphadenopathy, no meningeal signs, trachea midline and supple Resp Effort & Inspection: normal respiratory effort, able to speak in complete sentences and no respiratory distress Auscultation: clear to auscultation bilaterally Cardio Rate: regular rate Rhythm: regular rhythm Heart Sounds: S1 normal and S2 normal Back/Spine/Pelvis Cervical Spine: normal cervical lordosis, cervical ROM normal (see above), cervical muscular tenderness (right side, along trapezius), pain with cervical ROM, cervical spasm (feels tight along right side), No cervical spinal tenderness (no midline tenderness) and No step off deformity Skin General skin exam: no rashes or lesions noted Lesions: no lesions Rashes: no rashes Trauma: no lacerations or abrasions Neuro General: patient alert and patient awake Cognition: normal cognition Speech: speech normal Gait: normal gait Motor: muscle tone normal throughout Sensory Exam: no sensory deficits noted Psych Appearance: grossly normal and well kempt Mental Status: mental status grossly normal Speech and Movement: speech and movement normal Course Vital Signs Vital signs: Vital Signs Temperature 36.6 C 07/02/22 10:15 Pulse 84 07/02/22 10:15 Respiratory Rate 16 07/02/22 10:15 Blood Pressure 126/79 07/02/22 10:15 Pulse Oximetry 98 07/02/22 10:15 Temperature 36.6 C 07/02/22 10:15 Temperature Source Oral 07/02/22 10:15 Pulse 84 07/02/22 10:15 Respiratory Rate 16 07/02/22 10:15 Respiratory Effort Normal 07/02/22 10:17 Blood Pressure 126/79 07/02/22 10:15 Blood Pressure Position Sitting 07/02/22 10:15 Pulse Oximetry 98 07/02/22 10:15 Oxygen Delivery Method Room Air 07/02/22 10:15 Oxygen Flow Rate 0 07/02/22 10:15 Pain Level 8 07/02/22 10:17
[2022-07-02] MEDS: Lidocaine 5% Patch 1 PATCH TP (10:35)
[2022-07-02] MEDS: Ibuprofen 400 MG TAB PO (10:35)
[2022-07-02] MEDS: Acetaminophen 500 MG TAB 1000 MG PO (10:35)
== END 2022-07-02 10:41 | disposition home or self-care (01) ==
PROVIDERS: Emergency Provider Physician Assistant; PCP Family Medicine
DX: M62.838 Other muscle spasm (principal)
CPT/HCPCS: 99283; 99284

== ENCOUNTER 2022-12-20 16:06 | Outpatient (REF) | payer MEDICAID, SELFPAY ==
--- NOTE | 2022-12-20 15:30 | PAPFT_PTH ---
PATIENT: Marija Rice LOC: [facility]#:[id number] AGE/SX: 41/F ROOM: RE12/20/[address]: Shy Courtney V : 1980 BED: DIS: 12/20/2022 SPEC #: [id number] RECD: 12/21/22 11:44 STATUS: CARYL RESayda #: [id number] GEMMA: 12/20/22 15:[address]: Shy Courtney V DEPT: [facility] Cytology RECD BY: Gely Donahue Tissues: 1 - CX/ENDOCX FOR PAP SMEARS Procedures: PAP THIN PREP/UVM Screening HPV DNA PROBE Comments: [id number]
== END 2022-12-20 16:07 | disposition home or self-care (01) ==
LOC: NCHCN 16:06
PROVIDERS: PCP Family Medicine; Visit Provider Family Medicine
DX: Z12.4 Encounter for screening for malignant neoplasm of cervix (principal); Z11.51 Encounter for screening for human papillomavirus (HPV)
CPT/HCPCS: 88142; 87624

== ENCOUNTER 2022-12-21 15:42 | Outpatient (REF) | payer MEDICAID, SELFPAY ==
[2022-12-21 15:19] LABS: Abs Immature Grans 0.05 10^3/uL (0.0-0.06); Absolute Basophil Count 0.05 10^3/uL (0.0-0.2); Absolute Eosinophil Count 0.09 10^3/uL (0.0-0.7); Absolute Lymphocyte Count 1.59 10^3/uL (1.2-3.4); Absolute Neutrophil Count 3.11 10^3/uL (1.2-6.7); Eosinophils % 1.7; HCT 33.4 % (36.0-46.0); HGB 10.2 g/dL (11.2-15.7); Lymphocytes % 30.6; MCH 23.7 pg (27.0-33.0); MCHC 30.5 % (32.0-36.0); MCV 78 fL (80-95); MPV 9.6 fL (8.0-11.0); Monocytes % 5.8; Neutrophils % 59.9; Platelet Count 342 10^3/uL (130-400); RBC 4.31 10^6/uL (3.93-5.22); RDW 15.2 % (11.7-14.6); RDW-SD 42.8 fL; WBC 5.19 10^3/uL (4.4-10.8)
[2022-12-21 15:28] LABS: ALT 43 U/L (14-59); AST 23 U/L (15-37); Alkaline Phosphatase 97 U/L (46-116); Anion Gap 9.6 mmol/L (3-11); BUN 10 mg/dL (7-18); Bilirubin, Total 0.3 mg/dL (0.2-1.0); CO2 25.4 mmol/L (21.0-32.0); CREATININE 0.9 mg/dL (0.55-1.02); Calcium 9.4 mg/dL (8.5-10.1); Calculated LDL 159 mg/dL (<100); Chloride 99 mmol/L (98-107); Cholesterol 251 mg/dL (<200); Estimated GFR 82.88 (mL/min/1.73m2); Glucose 106 mg/dL (74-106); HDL Cholesterol 46 mg/dL (40-60); Sodium 134 mmol/L (136-145); Total Protein 7.6 g/dL (6.4-8.2); Triglyceride 231 mg/dL (<150)
[2022-12-21 16:34] LABS: Vitamin D 25 Total 24.2 ng/mL (30-100)
[2022-12-21 16:35] LABS: Hemoglobin A1C 6.3 % (<5.7)
[2022-12-21 22:17] LABS: CRP, High Sensitivity 2.34 mg/L (See Note)
[2022-12-24 12:48] LABS: ESR (LRH) 27 mm/hr
== END 2022-12-21 15:43 | disposition home or self-care (01) ==
LOC: NCHCN 15:42
PROVIDERS: PCP Family Medicine; Visit Provider Family Medicine
DX: R63.5 Abnormal weight gain (principal); M54.50 Low back pain, unspecified; R52 Pain, unspecified
CPT/HCPCS: 80053; 80061; 82306; 85652; 86141; 83036; 84443; 85025

== ENCOUNTER 2023-02-14 13:23 | Outpatient (REF) | payer MEDICAID, SELFPAY ==
[2023-02-14 17:40] LABS: Ferritin 36 ng/mL (8-252)
[2023-02-14 17:49] LABS: C-Reactive Protein 0.36 mg/dL (0.0-0.3)
[2023-02-15 17:49] LABS: Rheumatoid Factor <8.6 IU/mL (<12.0)
[2023-02-18 10:19] LABS: Lyme Ab w Rflx to Lyme Confirm Negative (Negative)
[2023-02-18 10:33] LABS: Alpha 1 Antitrypsin,Serum 132 mg/dL (90-200)
[2023-02-18 15:41] LABS: ANA Interpretation Negative (Negative)
== END 2023-02-14 13:24 | disposition home or self-care (01) ==
LOC: NCHCN 13:23
PROVIDERS: PCP Family Medicine; Visit Provider Family Medicine
DX: R53.83 Other fatigue (principal); R63.5 Abnormal weight gain; Z00.00 Encounter for general adult medical examination without abnormal findings; M89.9 Disorder of bone, unspecified
CPT/HCPCS: 82103; 82728; 85014; 85018; 86038; 86140; 86431; 86618

== ENCOUNTER 2023-05-21 17:52 | Outpatient (REF) | payer MEDICAID, SELFPAY ==
[2023-05-21 18:54] LABS: HCT 35.7 % (36.0-46.0); MCH 29.5 pg (27.0-33.0); MCHC 33.6 % (32.0-36.0); MCV 88 fL (80-95); MPV 11.2 fL (8.0-11.0); Platelet Count 214 10^3/uL (130-400); RBC 4.07 10^6/uL (3.93-5.22); RDW 12.3 % (11.7-14.6); RDW-SD 39.1 fL; WBC 5.15 10^3/uL (4.4-10.8)
[2023-05-21 19:07] LABS: Iron 74 ug/dL (50-170); Total Iron Binding Capacity 324 ug/dL (250-450); Transferrin Sat 23 % (15-50)
[2023-05-21 19:09] LABS: INR 0.9 (0.9-1.1); Prothrombin Time 9.4 sec (9.1-11.1)
[2023-05-21 19:13] LABS: Hemoglobin A1C 5.5 % (<5.7)
== END 2023-05-21 17:53 | disposition home or self-care (01) ==
LOC: NCHCN 17:52
PROVIDERS: PCP Family Medicine; Visit Provider Family Medicine
DX: D64.9 Anemia, unspecified (principal); R73.03 Prediabetes; R06.02 Shortness of breath
CPT/HCPCS: 85027; 83036; 83540; 83550; 85610; 85730

== ENCOUNTER 2025-01-27 17:25 | Outpatient (REF) | payer MEDICAID, SELFPAY | END 2025-01-27 17:26 | disposition home or self-care (01) | LOC: LBN 17:25 | PROVIDERS: PCP Family Medicine; Visit Provider Physician Assistant Medical | DX: J02.9 Acute pharyngitis, unspecified (principal) | CPT/HCPCS: 87077; 87070 ==